=== PATIENT | female | born 1955 | race Caucasian/White ===

== ENCOUNTER 2024-06-03 08:17 | Observation (INO) ==
--- NOTE | 2024-06-03 09:17 | History & Physical Bridge Note ---
Date of Service June 03, 2024 History & Physical Bridge Note I have examined the patient, reviewed the History & Physical and in the interval since the performance of the History & Physical I have noted the following changes of clinical significance: no changes noted
--- NOTE | 2024-06-03 09:37 | Pre Anesthesia Assessment ---
Date of Service June 03, 2024 Pre Sedation Assessment Vital Signs Temp Pulse Resp BP Pulse Ox O2 Del Method 06/03/24 08:37 36.8 C 80 16 168/88 H 100 Room Air Cardiovascular + regular rate and + regular rhythm + S1 normal and + S2 normal; no murmur no JVD and no carotid bruit no edema Respiratory + respiratory effort normal; no respiratory distress no crackles, no rales, no rhonchi and no wheezes Pre-Sedation Airway Assessment Smoking Status: Never smoker Hx Sleep Apnea: No Short, Thick Neck: No Thyromental Distance: > or= 3.5 Finger Breadths Oral Cavity: + Dentures Mallampati Class: III ASA: ASA3 NPO Status Date of Last Intake of Fluids: 06/03/24 Time of Last Intake of Fluids: 05:30 Last Oral Intake of Fluids Comment: sip with meds Date of Last Intake of Solid Food: 06/02/24 Time of Last Intake of Solid Foods: 21:30 Procedure Planning Contraindications for Sedation: none Current Medications Reviewed: Yes Notes The planned sedation has been discussed with the patient. Informed Consent was obtained. I have identified the patient, determined the appropriateness of sedation and have assessed the patient immediately prior to the procedure. All medicine(s) and interventions are by my order.
[2024-06-03] MEDS: niCARdipine 2,000 MCG/20 ML SYR ONE (09:43)
[2024-06-03] MEDS: NITROGLYCERIN/D5W 100MCG/ML 20ML SYR ONE (09:43)
--- NOTE | 2024-06-03 10:27 | Post Anesthesia Assessment ---
Date of Service June 03, 2024 Post Sedation Assessment Vital Signs Temp Pulse Resp BP Pulse Ox O2 Del Method 06/03/24 08:37 36.8 C 80 16 168/88 H 100 Room Air Recovery Score Respiration: Deep Breath/Cough Circulation: +/-20% PreAnes Value Consciousness: Arouseable (by name) Discharge Sedation Level of Care: Phase I Post Sedation Plan On clinical assessment, the patient appears to have tolerated the sedation without complications. Patient is recovering as anticipated. Patient will continue to be monitored by nursing and may be discharged when sedation discharge criteria are met per below protocol. Upon Completions of procedure up to 15 minutes continue every 5 minute vital signs and the P.A.R. score; then discharge to a Phase I or Fast Track to Phase II per the following guidelines: * Discharge Patient to appropriate Phase II area if PAR is 8 or greater or return to pre- procedure baseline. The post - procedure orders will be as directed. * If PAR score is less than 8 or not return to pre-procedure baseline then patient will follow Phase I monitoring till PAR is reached for Phase II. The Phase I may be done in procedure room or may call to secure a Phase I area. * If naloxone or flumazenil are used for reversal, hold in Phase I for continued monitoring from when last reversal dose was given for a minimum of 60 minutes or longer pending the nurse and/or physician discretion of patient condition before discharge to Phase II. Please call the Sedation Physician to re-evaluate and complete post-note for discharge to Phase II area. Do NOT discharge from procedure sedation or Phase 1 until post- sedation evaluation note is complete by procedure /sedation MD Sedation Discharge Instructions to be given to the patient at discharge to home.
--- NOTE | 2024-06-03 10:35 | Cardiac Catheterization ---
Cardiac Cath Procedure Full Procedure Date June 03, 2024 Pre-Procedure Diagnosis Pre-Procedure Diagnosis: Angina and Positive Stress Test AUC Score AUC Score: 7 Post-Procedure Diagnosis Post-Procedure Diagnosis: Severe CAD and Normal Intracardiac Pressures Procedure(s) Performed Procedure(s) Performed: Coronary Angiography and Left Heart Cath Disk Recordist Mahesh Shelton DO Nurse Office(s) Maikel RTR Estimated Blood Loss Estimated Blood Loss: 5cc Summary of Findings 99% proximal LAD with TIM2-3 flow, right to left, and left to left collaterals. 80% mid RCA Hemodynamics Rest Ao:: 104/59/106 Final Ao: 117/58/84 LV: 118/-05/09 Recommendations Recommendations: PCI without planned CABG (Interventional cardiology consulted for PCI) Specimens Specimens: None Radiation Exposure (mGy) 335 Contrast (mls) 45 Fluids (cc crystalloids) Fluids (cc crystalloids): 0cc Drains Drains: N/A Anesthesia Moderate sedation. Start 0958. End 1022. Sedation monitor: Sher EID Procedural Complication(s) None Disposition wheelabrator operator for PCI I attest to the content of the Intraoperative Record and any orders documented therein. Any exceptions are noted below. 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 Recent exercise stress echo positive for inducible ischemia involving inferior wall and inferior septum. CAD Presenation: Positive Stress Test and Stable angina Coronary Anatomy Dominant: Right Left Main (% Stenosis): Normal LAD (% Stenosis): Proximal (99%) and Mid (80%) D1 (% Stenosis): Ostial (30%, large vessel) Circumflex (% Stenosis): Normal OM1 (% Stenosis): Normal (large vessel, Gives rise to left to left collaterals.) RCA (% Stenosis): Mid (80%) R PDA (% Stenosis): Normal R PL1 (% Stenosis): Normal R PL2 (% Stenosis): Normal (small vessel) Ramus (% Stenosis): Normal (small vessel) Diagnostic Physicians Name: Mahesh Shelton DO Closure Device Percutaneous Entry Location: Radial Closure Device: Radial Band Recommendations: PCI without planned CABG (Interventional cardiology consulted for PCI) Intraprocedure Events Significant Disection: No Perforation: No
[2024-06-03] MEDS: HEPARIN (PORCINE) 1000 UNIT/ML 10 ML (CATH LAB USE ONLY) ONE ×2 (12:01→12:02)
[2024-06-03] MEDS: fentaNYL citrate PF 100 MCG/2 ML VIAL ONE (12:01)
[2024-06-03] MEDS: MIDAZOLAM HCL 1 MG/ML 2ML VIAL ONE ×3 (12:01→12:02)
[2024-06-03] MEDS: CLOPIDOGREL BISULFATE 300 MG TAB ONE (12:02)
[2024-06-03] MEDS: OPTIRAY 350 ONE (12:02)
[2024-06-03] MEDS ORDERED: ONDANSETRON INJ 2 MG/ML 2 ML VIAL IV PRN (12:21)
[2024-06-03] MEDS ORDERED: NITROGLYCERIN SL 0.4 MG/TAB TAB SL PRN (12:21)
[2024-06-03] MEDS ORDERED: ACETAMINOPHEN 325 MG TAB PO PRN (12:21)
--- NOTE | 2024-06-03 12:21 | Post Anesthesia Assessment ---
Date of Service June 03, 2024 Post Sedation Assessment Vital Signs Temp Pulse Resp BP Pulse Ox O2 Del Method 06/03/24 12:08 64 16 117/69 99 Room Air 06/03/24 08:37 98.2 F 80 16 168/88 H 100 Room Air Recovery Score Activity: Moves 4 extremities Respiration: Deep Breath/Cough Circulation: +/-20% PreAnes Value Consciousness: Fully Awake Oxygen Saturation: > 92% On Room Air Post Anesthesia Score: 10 Discharge Sedation Level of Care: Fast Track Phase II Post Sedation Plan On clinical assessment, the patient appears to have tolerated the sedation without complications. Patient is recovering as anticipated. Patient will continue to be monitored by nursing and may be discharged when sedation discharge criteria are met per below protocol. Upon Completions of procedure up to 15 minutes continue every 5 minute vital signs and the P.A.R. score; then discharge to a Phase I or Fast Track to Phase II per the following guidelines: * Discharge Patient to appropriate Phase II area if PAR is 8 or greater or return to pre- procedure baseline. The post - procedure orders will be as directed. * If PAR score is less than 8 or not return to pre-procedure baseline then patient will follow Phase I monitoring till PAR is reached for Phase II. The Phase I may be done in procedure room or may call to secure a Phase I area. * If naloxone or flumazenil are used for reversal, hold in Phase I for continued monitoring from when last reversal dose was given for a minimum of 60 minutes or longer pending the nurse and/or physician discretion of patient condition before discharge to Phase II. Please call the Sedation Physician to re-evaluate and complete post-note for discharge to Phase II area. Do NOT discharge from procedure sedation or Phase 1 until post- sedation evaluat ion note is complete by procedure /sedation MD Sedation Discharge Instructions to be given to the patient at discharge to home.
[2024-06-03] MEDS ORDERED: CLOBETASOL PROPIONATE 0.05% CREAM 15 GM TUBE TOP PRN (12:26)
--- NOTE | 2024-06-03 12:35 | Cardiac Catheterization ---
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 Cardiac Status Clinical evaluation leading to the procedure CAD Presenation: Positive Stress Test Anginal Classification: CCS III Diagnostic Physicians Name: Efren Fox MD Closure Device Recommendations: PCI without planned CABG (Interventional cardiology consulted for PCI) Cardiac Cath Procedure Full Procedure Date June 03, 2024 Pre-Procedure Diagnosis Pre-Procedure Diagnosis: Angina and Positive Stress Test AUC Score AUC Score: 7 Post-Procedure Diagnosis Post-Procedure Diagnosis: Severe CAD and Successful PCI Procedure(s) Performed Procedure(s) Performed: Coronary Angiography, PTCA and Drug Eluting Stent Shoe Planner Efren Fox MD Senior Java Software Developer(s) Maikel RTR Estimated Blood Loss Estimated Blood Loss: 30 Medication(s) Medication(s): Clopidogrel, Fentanyl, Heparin, Nicardipine, Nitroglycerin and Versed Summary of Findings Indication: Abnormal stress test, family history of premature CAD Access: 6 Fr right radial artery Catheters: JR4 guide, EBU 3.5 guide Findings: For full details of patient's coronary angiography please see cath report dictated by Dr. Shelton. Briefly, patient found to have severe two-vessel CAD with 80% mid RCA and 99%/subtotal mid LAD with left to left and brisk right to left collaterals. Decision to proceed with PCI of RCA and LAD. -- PCI -- Antithrombotic therapy: Heparin, clopidogrel Procedure: RCA cannulated with JR4 guide Pre-procedure flow ANAM 3 Property Management Intern 50 wire passed across lesion into distal vessel Mid RCA lesion predilated with 2.5 compliant balloon Dilated lesion stented with 3.0 x 34 mm Bj drug-eluting stent Stent post-dilated with 3.5 noncompliant balloon IC vasodilators administered for spasm Post procedure ANAM 3 flow, stent well expanded with minimal residual stenosis and no apparent cardiac complications. Left main cannulated with EBU 3.5 guide Preprocedure flow ANAM II [place] blue wire navigated across subtotal LAD occlusion into distal vessel Property Management Intern 50 wire placed into large diagonal Mid LAD dilated with 2.5 balloon Mid LAD stented with 2.5 x 15 mm [place] drug-eluting stent across takeoff of diagonal Stent postdilated with 3.0 NC Severe stenosis in jailed diagonal dilated with 2.0 and 2.5 balloons Post angioplasty mild to moderate residual stenosis with ANAM-3 flow Additional IC vasodilators administered for possible spasm. Had residual severe diffuse disease in mid LAD after stent. Second stent placed to LAD (2.25 x 30 mm Bj) postdilated with stent balloon IC vasodilators administered. Post procedure ANAM III flow in the LAD, diagonal. Stents well-expanded with no residual stenosis and no apparent cardiac complications. Arterial Closure: TR band Summary: 1. Successful PCI of mid RCA with single drug-eluting stent (3.0 x 34 mm Bj; postdilated with 3.5 NC). 2. Successful PCI of mid LAD with 2 overlapping drug-eluting stents (2.5 x 15, 2.25 x 30 mm Bj; postdilated proximally with 3.0 NC). -PTCA of jailed diagonal ostium with 2.5 balloon Recommendations: To PCU for continued monitoring Loaded with clopidogrel 600 mg in Stained Glass Artist Continue dual-antiplatelet therapy for at least 1 year Continue statin, and ASCVD risk factor modification Consult cardiac Rehab Hemodynamics Rest Ao:: 126/59/84 Final Ao: 81/40/67 LV: -- Recommendations Recommendations: PCI without planned CABG (Interventional cardiology consulted for PCI) Specimens Specimens: None Radiation Exposure (mGy) 1879 Contrast (mls) 65 Fluids (cc crystalloids) Fluids (cc crystalloids): 0cc Drains Drains: N/A Anesthesia Moderate sedation. Start 1032. End 1156. Sedation monitor: Sher EID Procedural Complication(s) None Disposition PCU I attest to the content of the Intraoperative Record and any orders documented therein. Any exceptions are noted below. [facility] Card Cath Procedure Codes Moderate Sedation Procedure 1: Sedation/Anesthesia: 89715 Mod Sedation by the same physician; Ea [id number] Minutes Stenting Procedure 1: Cardiovascular Stent Procedures: 87463 Perc transluminal revascularization of chronic total occlusion, Procedure 2: Cardiovascular Stent Procedures: 41012 Ea addl branch of a major coronary artery PG Care Time/CCT Total # of Minutes Spent Total Time Spent with Patient: Total time spent is greater than 50% in coordination of care (as documented) at patient's floor/unit and/or counseling patient:
[2024-06-03 13:35] VITALS: RESP 18
[2024-06-03] MEDS: CALCIUM 600MG + VIT D 400 IU TAB PO SCH (19:53)
[2024-06-04 06:44] LABS: Basophils # (auto) 0.07 K/uL (0.00-0.20); Basophils % (auto) 1.1 %; Eosinophils # (auto) 0.04 K/uL (0.00-0.50); Eosinophils % (auto) 0.7 %; Hematocrit (blood only) 34.8 % (37.0-47.0); Hemoglobin 11.7 g/dl (12.0-16.0); Immature Granulocytes # (auto) 0.03 K/uL (0.01-0.20); Immature Granulocytes % (auto) 0.5 %; Lymphocytes # (auto) 0.97 K/uL (1.20-3.40); Lymphocytes % (auto) 15.9 %; Mean Corpuscular Hemoglobin 30.5 pg (25.0-34.0); Mean Corpuscular Hgb Conc 33.6 g/dL (32.0-36.0); Mean Corpuscular Volume 90.9 fL (80.0-100.0); Mean Platelet Volume 10.8 fL (9.4-12.4); Monocytes # (auto) 0.51 K/uL (0.11-0.59); Monocytes % (auto) 8.4 %; Neutrophils # (auto) 4.47 K/uL (1.40-6.50); Neutrophils % (auto) 73.4 %; Platelet Count 187 K/uL (130-400); RDW Coefficient of Variation 12.3 % (11.5-14.5); Red Blood Count 3.83 M/uL (4.20-5.40); White Blood Count 6.09 K/ul (4.8-10.8)
[2024-06-04 06:54] LABS: BUN Creatinine Ratio 28.6 (10-20); Calcium 9.4 mg/dl (8.6-10.3); Potassium 4.7 mmol/L (3.5-5.1)
[2024-06-04 07:53] VITALS: BP 95/63; TEMP 98.1; O2SAT 96
--- NOTE | 2024-06-04 08:47 | Cardiology Progress Note ---
Date of Service June 04, 2024 Assessment & Plan (1) Status post insertion of drug-eluting stent into left anterior descending (LAD) artery: (2) S/P right coronary artery (RCA) stent placement: (3) Abnormal stress echocardiogram: (4) Dyslipidemia, goal LDL below 70: Plan Natural history and pathophysiology of coronary artery disease discussed. Recommend continue dual antiplatelet therapy for minimum of 12 months post percutaneous intervention. Post cardiac catheterization activity restrictions listed on discharge summary. Prescription for clopidogrel and sublingual nitroglycerin sent to pharmacy. Borderline hypotension noted this a.m. Lisinopril currently on hold. Cautiously restart lisinopril tomorrow 06/05/2024 and monitor home blood pressure 2-3 days/week. If she notes systolic blood pressure consistently below 110 mmHg, reduce lisinopril to 5 mg daily. All questions answered to patient satisfaction. Cardiology follow-up in 2 to 4 weeks with repeat lipid panel. Consider titration of atorvastatin pending review. Admission and Anticipated Discharge Date Admission Date: June 03, 2024 Subjective 60-year-old female seen examined at the bedside. Multivessel stenting including PUNEET to RCA, and PUNEET to LAD performed 06/03/2024 without complication. Feeling well this morning. Mildly lightheaded in a.m. dose of lisinopril was held today. Denies chest pain or shortness of breath. Mild wrist discomfort without ecchymosis or hematoma. Questions regarding procedural details and any medication changes. Review of Systems Review of Systems: All systems reviewed & are unremarkable except as noted in Subjective Physical Exam Constitutional: well nourished; no acute distress Respiratory: normal respiratory effort; no respiratory distress Auscultation: no crackles, no rales, no rhonchi and no wheezes Cardiovascular: Rate/Rhythm: regular rate and regular rhythm Heart Sounds: normal S1 and normal S2; no murmur Vessels: radial pulses present (No ecchymosis or hematoma); no JVD and no carotid bruit Extremities: no edema Gastrointestinal (Abdomen): Inspection/Auscultation: abdomen normal to inspection and normal bowel sounds; abdomen not distended Percussion/Palpation: abdomen soft; abdomen nontender, no guarding and abdomen not rigid Neurologic: CN's II-XI intact bilaterally and moves all extremities Psychiatric: A+Ox3, euthymic affect Results & Data Vital Signs (Past 12 Hours) Vital Signs Temp Pulse Pulse Resp BP Pulse Ox O2 Del Method 06/04/24 07:52 36.7 C 73 18 95/63 L 96 Room Air 06/04/24 03:57 37.0 C 53 L 18 90/46 L 97 Room Air 06/03/24 23:19 36.8 C 57 L 18 106/55 L 96 Room Air 06/03/24 22:02 77 Laboratory Results CBC 06/04/24 Range/Units 05:52 WBC 6.09 (4.8-10.8) K/ul RBC 3.83 L (4.20-5.40) M/uL Hgb 11.7 L (12.0-16.0) g/dl Hct 34.8 L (37.0-47.0) % Plt Count 187 (130-400) K/uL Neut # (Auto) 4.47 (1.40-6.50) K/uL Lymph # (Auto) 0.97 L (1.20-3.40) K/uL Meigs # (Auto) 0.51 (0.11-0.59) K/uL Eos # (Auto) 0.04 (0.00-0.50) K/uL Baso # (Auto) 0.07 (0.00-0.20) K/uL Comprehensive Metabolic Panel 06/04/24 Range/Units 05:52 Sodium 138 (136-145) mmol/L Potassium 4.7 (3.5-5.1) mmol/L Chloride 106 (98-107) mmol/L Carbon Dioxide 28 (21-32) mmol/L BUN 24 H (6-23) mg/dl Creatinine 0.84 (0.6-1.2) mg/dl Glucose 99 (70-99(Fasting)) mg/dl Calcium 9.4 (8.6-10.3) mg/dl Intake and Output 06/03/24 06/04/24 06/04/24 22:59 06:59 14:59 Intake Total 150 / 250 100 / 250 Balance 150 / 250 100 / 250 Intake: Oral 150 / 250 100 / 250 Other: # Unmeasured Voids 2 2 Weight 62 kg
[2024-06-04] MEDS: lisinopril 10 MG TAB PO SCH (09:06)
[2024-06-04] MEDS: METOPROLOL SUCC 25MG EXT REL TAB PO SCH (09:06)
[2024-06-04] MEDS: ASPIRIN 81 MG ECTAB PO SCH (09:06)
[2024-06-04] MEDS: ATORVASTATIN 40 MG TAB PO SCH (09:06)
[2024-06-04] MEDS: CLOPIDOGREL BISULFATE 75 MG TAB PO SCH (09:06)
[2024-06-04 11:18] VITALS: PULSE 54
--- OUTSIDE RECORDS SUMMARY | 2024-06-04 11:21 | External Medical Summary | Summary of Care ---
Author Name Unknown Organization [facility] Address [address] [place] [address] Phone [phone] Care Team Providers Care Supervisor Claims Name Role Phone Mag Buenrostro DO Primary Care Provider [phone] Encounter Details Date Type Department Care Team (Latest Contact Info) Description 05/26/2024 2:52 PM EST - 05/26/2024 11:59 PM EST Hospital Encounter Radiology Film File [address] [place] [address] Arrived Discharge Disposition: Home - Self Care Allergies No known active allergiesdocumented as of this encounter (statuses as of 05/27/2024) Medications Calcium Carb-Cholecalcife rol 600-400 MG-UNIT Oral TabletIndications :2 pills a day Take by mouth 2 times a day . Active Clobetasol Propionate 0.05 % External Cream (Temovate)Indicat ions:Lichen sclerosus Apply topically to affected area 2 times a day. To affected area for up to two weeks. Then three times a week (M, W, F) for one week, then twice a week (M, F) for one week, then once a week (M) x 1 week. 15 g 1 4 Active Lisinopril 10 MG Oral Tablet (Prinivil)Indicat ions:Primary hypertension Take 1 Tablet by mouth in the morning. 90 Tablet 3 4 Active Atorvastatin Calcium 40 MG Oral Tablet (Lipitor) Take 1 Tablet by mouth in the morning. 90 Tablet 3 4 Active Aspirin 81 MG Oral Tablet Delayed Release Take 1 Tablet by mouth in the morning. 90 Tablet 3 5 Active Metoprolol Succinate ER 25 MG Oral Tablet Extended Release 24 Hour (Toprol XL)Indications:DO E (dyspnea on exertion) One tablet by mouth daily 90 Tablet 3 5 Active documented as of this encounter (statuses as of 05/27/2024) Active Problems Problem Noted Date Diagnosed Date Lichen sclerosus 03/23/2024 Osteopenia of necks of both femurs 03/23/2024 Kidney stone 03/23/2024 Overview (03/23/2024): asymptomatic Hx of nonmelanoma skin cancer 08/07/2020 Overview (08/07/2020): basal cell carcinoma (L lateral cheek 08/2020) Primary hypertension 07/28/2014 Overview (09/06/2014): lisinopril Hyperlipidemia with target LDL less than 100 Overview (09/04/2015): LDL 173 ICD-10 update of inactive term documented as of this encounter (statuses as of 05/27/2024) Resolved Problems Problem Noted Date Diagnosed Date Resolved Date CKD (chronic kidney disease), stage II 03/08/2021 03/23/2024 Overview (09/06/2021): EGFR 66 ADVANCE DIRECTIVE INFORMATION 07/04/2005 03/08/2024 Overview (07/04/2005): No, Advance Directive brochure given to patient. 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 Mucous polyp of cervix 01/22/200202/20 documented as of this encounter (statuses as of 05/27/2024) Immunizations Name Administration Dates Next Due COVID-19 mRNA, LNP-s, No Pre serve, 2-Dose Series (Moderna) 11/02/2020,10/05/2020 Seasonal Influenza, High Dos e, Trivalent, PF, IM (Fluzone HD) 03/23/2024 Seasonal Influenza, PF, 6 M & above, IM , (FluLaval or Fluzone) 03/02/2020,02/23/2019,02/19/2018,2016 Seasonal Influenza, Quadriva lent Hd (Fluzone Hd) 03/20/2023,03/14/2022,03/08/2021 Seasonal Influenza, Quadriva lent, No Preserve, IM 02/20/2016,02/07/2015 TDAP (age 10 and older)(Boostrix) 06/01/2020, Varicella Zoster Vaccine (Adult) 08/15/2015 Zoster Vaccine Recombinant (Shingrix) 06/01/2020 ,03/02/2020 documented as of this encounter Social History Tobacco Use Types Packs/Day Years Used Date Smoking Tobacco: Never Smokeless Tobacco: Never Alcohol Use Standard Drinks/Week Comments No 0 (1 standard drink = 0.6 oz pur e alcohol) PHQ-2 Answer Date Recorded PHQ Adult Total Score 0 03/23/2024 Hunger Vital Sign Answer Date Recorded Within the past 12 months, y ou worried that your food would run out before you got the money to buy more. Never true 03/21/20 23 Within the past 12 months, t he food you bought just didn't last and you didn't have money to get more. Never true 03/21/2023 Childcare Answer Date Recorded Do you feel overwhelmed with taking care of a child, family member or friend? No 03/21/2023 Does your family need help f inding childcare? (Household - for ages 0-17 years) Not on file 03/21/2023 Clothing Answer Date Recorded Have you been unable to get clothing when it was really needed? No 03/21/2023 Is your family able to get c lothes or diapers when needed? (Household - for ages 0-17 years) Not on file 03/21/2023 Personal Safety Answer Date Recorded Do you feel unsafe or have concerns for your saf ety? No 03/21/2023 Do you have concerns for you r family's safety? (Household - for ages 0-17 years) Not on file 03/21/2023 Utilities Answer Date Recorded Do you have trouble paying y our heating, water, or electric bill? No 03/21/2023 Is your family able to pay t he heat, water, or electric bill? (Household - for ages 0-17 years) Not on file 03/21/2023 Does your family have access to good internet? (Household - for ages 0-17 years) Not on file 03/21/2023 Employment Status Answer Date Recorded Are you unemployed or without regular income? No 03/21/2023 Does the household have a re gular source of income? (Household - for ages 0-17 years) Not on file 03/21/2023 Social Connections Answer Date Recorded How often do you feel lonely or isolated from th ose around you? Rarely 03/21/2023 Financial Resource Strain Answer Date R ecorded Do you have any trouble payi ng for your medications, or do you think you might in the future? No 03/21/2023 Does your family have troubl e paying for medicine? (Household - for ages 0-17 years) Not on file 03/21/2023 Transportation Needs Answer Date Record ed READ ONLY Do you have troubl e getting a ride to medical visits or work? Never True 03/21/2023 Does your family have a hard time getting a ride to doctors visits? (Household - for ages 0-17 years) Not on file 03/21/2023 Has lack of transportation k ept you from medical appointments, meetings, work, or from getting things needed for daily living? Check all that apply. (Adult - for ages 18 years and over) Not on file 03/21/2023 Do you (or your family) have trouble finding or paying for a ride (transportation)? (Household - for ages 0-17 years) Not on file 03/21/2023 Housing Stability Answer Date Recorded Do you currently live in a s helter or have no steady place to sleep at night? No 03/21/2023 READ ONLY Do you think you a re at risk of becoming homeless? No 03/21/2023 Does your family worry about paying for your home or becoming homeless? (Household - for ages 0-17 years) Not on file 1 05/21/2022 Are you homeless or worried that you might be in the future? (Adult - for ages 18 years and over) Not on file Are you (or your family) silverio eless or worried that you might be in the future? (Household - for ages 0-17 years) Not on file Food Insecurity Answer Date Recorded Do you need food for this week? No 03/21/2023 Are you able to get enough f ood for your family? (Household - for ages 0-17 years) Not on file 03/21/2023 Does your family need food t his week? (Household - for ages 0-17 years) Not on file 03/21/2023 Do you always have enough fo od for your family? 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 Not on file Not on file documented as of this encounter Plan of Treatment Upcoming Encounters Date Type Department Care Team (Late st Contact Info) Description 07/28/2024 1:00 PM EDT Office Visit Gynecology/Obstetrics [facility] [address] [address] Evelyn Vega MD [address] [address] 09/13/2024 3:00 PM EDT Imaging Radiology [facility] [address] [phone] 09/30/2024 9:00 AM EDT Imaging Radiology [address] [place] [address] 10/27/2024 8:50 AM EDT Office Visit Family Medicine [address] [place] [phone] Mag Buenrostro, DO [address] [place] [address] [place] [place] [address] 11/24/2025 8:20 AM EDT Office Visit [address] [phone] Komal Ellis PA-C [address] [place] [address] [address] [place] [address] Scheduled Procedures Name Priority Associated Diagnoses Date/Ti me COLONOSCOPY FLEXIBLE PROXIMA L DIAGNOSTIC Recall Special screening for malignant neoplasms, colon Health Maintenance Due Date Last Done Comments Cologuard 2000 Fecal Occult Blood Test 2000 Sigmoidoscopy 2000 Pneumococcal Vaccine: 50+ Years (1 of 1 - PCV) 2005 Adult Wellness Visit 2021 COVID-19 Vaccine ( season) 2024 11/02/2020, 10/05/2020 Mammogram 09/24/2024 09/25/2023, 09/03, 09/19/2022, Additional history exists Colonoscopy 10/25/2024 10/25/2014, 10/25/2014 Colorectal Cancer Screening 10/25/2024 Depression Screening 03/23/2025 03/23/2024 GFR 05/25/2025 05/25/2024, 03/05, 03/20/2023, Additional history exists Albumin/Creatinine Ratio 03/20/2026 023, 03/14/2022, 03/08/2021, Additional history exists DXA Scan 03/13/2028 03/13/2021, 03/13/2021 Lipid Panel 03/23/2029 03/23/2024, 08/2020, 03/02/2020, Additional history exists DTap/Tdap Vaccines (3 - Td or Tdap) 06/01/2030 06/01/2020, 05/24/2010 Pap Smear Discontinued 05/12/2018, 09/03, 09/22/2014, Additional history exists Zoster Vaccines Completed 06/01/2020, 02/03, 08/15/2015 Influenza Vaccine (FLU shot) Completed 03/23/2024, 03/20/2023, 03/20/2023, Additional history exists HPV (Gardasil) Vaccine Aged Out No lo nger eligible based on patient's age to complete this topic Hepatitis B Vaccine Aged Out No longe r eligible based on patient's age to complete this topic MENINGOCOCCAL (MENACTRA/MENVEO) Aged Out No longer eligible based on patient's age to complete this topic documented as of this encounter Medical Devices Not on filedocumented as of this encounter Procedures Procedure Name Priority Date/Time Associated Diagnosis Comments DERM EXAM - DERM (IMAGES ONLY, NO REPORT) Routine 05/26/2024 2:52 PM EST Hx of nonmelanoma skin cancer Silver angioma Scar condition and fibrosis of skin Multiple nevi Actinic keratosis Seborrheic keratosis documented in this encounter Results * DERM EXAM - DERM (IMAGES ONLY, NO REPORT) (05/26/2024 2:52 PM EST) Narrative Scheduling, Silent - 05/26/2024 2:52 PM EST This is an imaging study not interpreted or resulted by a [facility] or [facility] contracted radiologist. us Komal Ellis PA-C RADIOLOGY (RAD GENERAL ) Final Result documented in this encounter Care Teams Supervisor Claims Relationship Specialty Start Date End Date Mag Buenrostro DO [address] [place] [address] [place] [phone] PCP - General Internal Medicine 03/23/24 documented as of this encounter
--- OUTSIDE RECORDS SUMMARY | 2024-06-04 11:21 | External Medical Summary | Summary of Care ---
Author Name Unknown Organization [facility] Address [address] [place] [address] Phone [phone] Care Team Providers Care Loss Prevention Manager Name Role Phone Mag Buenrostro DO Primary Care Provider [phone] Encounter Details Date Type Department Care Team (Late st Contact Info) Description 05/27/2024 Population Health External Data Unspecified Department Allergies No known active allergiesdocumented as of [...] 07/28/2024 1:00 PM EDT Office Visit Gynecology/Obstetrics [facility] [address] [address] Evelyn Vega MD [address] [address] 09/13/2024 3:00 PM EDT Imaging Radiology [facility] [address] [phone] 09/30/2024 9:00 AM EDT Imaging Radiology [address] [place] [address] 10/27/2024 8:50 AM EDT Office Visit Family Medicine [address] [place] [phone] Mag Buenrostro DO [address] [place] [address] [place] [address] 11/24/2025 8:20 AM EDT Office [facility] [address] [phone] Komal Ellis PA-C [address] [place] [address] [place] [address] Scheduled Procedures Name Priority Associated Diagnoses Date/Ti me COLONOSCOPY FLEXIBLE PROXIMA L DIAGNOSTIC Recall Special screening for malignant neoplasms, colon Health Maintenance Due Date Last Done Comments Cologuard 2000 Fecal Occult Blood Test 2000 Sigmoidoscopy 2000 Pneumococcal Vaccine: 50+ Years (1 of 1 - PCV) 2005 Adult Wellness Visit 2021 COVID-19 Vaccine ( - 2023- season) 2024 11/02/2020, 10/05/2020 Mammogram 09/24/2024 09/25/2023, [...] Not on filedocumented as of this encounter Care Teams Loss Prevention Manager Relationship Specialty Start Date End Date Mag Buenrostro DO [address] [place] [address] [address] [place] [phone] PCP - General Internal Medicine 03/23/24 documented as of this encounter
--- OUTSIDE RECORDS SUMMARY | 2024-06-04 11:21 | External Medical Summary | Summary of Care ---
Author Name Unknown Organization [facility] Address [address] [place] [address] Phone [phone] Care Team Providers Care Master Fire Control Technician Name Role Phone Mag Buenrostro DO Primary Care Provider [phone] Reason for Visit * Reason Comments Skin Check Pt presents today fo r routine skin check, reports small concerning lesion on face.Hx: NMSC, [place] Encounter Details Date Type Department Care Team (Late st Contact Info) Description 05/26/2024 2:40 PM EST Office Visit Dermatology [address] [place] [address] Komal Ellis PA-C [address] [place] [address] [place] [address] Hx of nonmelanoma skin cancer*; Silver angioma; Scar condition and fibrosis of skin; Multiple nevi; Actinic keratosis; Seborrheic keratosis Allergies No known active allergiesdocumented as of this encounter (statuses as of 05/26/2024) Medications Calcium Carb-Cholecalcife rol 600-400 MG-UNIT Oral [...] as of this encounter (statuses as of 05/26/2024) Active Problems Problem Noted Date Diagnosed Date [...] as of this encounter (statuses as of 05/26/2024) Resolved Problems Problem Noted Date Diagnosed Date Resolved Date CKD (chronic kidney disease), stage II 03/08/2021 03/23/2024 Overview (09/06/2021): EGFR 66 ADVANCE DIRECTIVE INFORMATION 07/04/2005 03/08/2024 Overview (07/04/2005): No, Advance Directive brochure given to patient. 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 Mucous polyp of cervix 01/22/200202/20 documented as of this encounter (statuses as of 05/26/2024) Immunizations Name Administration Dates Next Due COVID-19 mRNA, LNP-s, No Pre serve, 2-Dose Series (Moderna) 11/02/2020,10/05/2020 PPD 05/18/2003 Seasonal Influenza, High Dos e, Trivalent, PF, [...] No 03/21/2023 Does the household have a [facility] source of income? (Household - for ages [...] on file documented as of this encounter Patient Instructions * Patient Instructions* Komal Ellis PA-C - 05/26/2024 2:39 PM EST SUNSCREEN USE AND SUN PROTECTION: 1. The best protection is sun avoidance. Seek shade if you can, especially between 10am to 4pm (peak sun hours). 2. Use sunscreen with an SPF (Sun Protection Factor - the number on most sunscreen bottles) of 30 or more that protects from Ultraviolet A (UVA) and Ultraviolet B (UVB) wavelength light (strongly recommend SPF 50). This is referred to as broad spectrum sun protection because it protects from most wa velengths in both spectrums of UVA and UVB light. Unfortunately, even though the protection is broad it is not complete, therefore making sun avoidance the best protection. UVB and UVA have both beenimplicated in causing skin cancers. Older sunscreens only protected from UVB and sunscreens with added UVA protection should contain Titanium dioxide, Zinc oxide, or Avobenzone. Other oil free, non-comedogenic lotion with SPF 30 or greater is fine. 3. Use sun protection if outside for 15 minutes or more. Apply 20-30 minutes before going out and reapply every 1-2 hours. No sunscreen is truly water ''proof'' and it will wash away with sweat, swimming and rubbing. 4. Wear tightly woven, loose fitting (cooler) long sleeved clothing, UV-blocking sun glasses (eyes need protection as well) and wide-brimmed hatwear (no straw hats with holes because light still getsthrough). Strongly recommended *Neutrogena Pure and Free Baby SPF 60 (have separate face and body lotions) orCeraVe AM facial lotion (with SPF 30). If looking for non toxic alternatives-look for non-arlet particle zinc. Product examples; Think sport, Think baby, Geovanna, e27, [employer], [place] baby. "Baby" products can be used for all ages. Skin Cryosurgery (FREEZING) Instructions Most areas treated by freezing will need very little care. You may wash normally with soap and water and leave any small crusts in place. Vaseline to treated areas 2-3 times per day is a good idea, you do not need to keep them covered with bandages. If a large blister forms and breaks, you will want to apply a light dressing to the area. CHANGE DRESSING ONCE DAILY 1. Wash hands and remove the original dressing(s) in 12-24 hours. 2. Gently clean wound(s) with soap and water. Rinse with water and pat the wound dry. 3. Apply a thin layer of Vaseline ointment with a Q-tip. 4. Cover with a bandage if area(s) is not on the face or scalp. A dressing is not required on the face or scalp. Use non-adherent dressing and paper tape if you are sensitive to band-aid adhesive sensitive. 5. If you have any concerns about the healing wound, please either or our main Dermatology office in [place] at [phone]. If an emergency, please go to your nearest Emergency Department. documented in this encounter Progress Notes * Gustavo Gastelum MD - 05/26/2024 3:21 PM EST I have seen and examined the patient via teledermatology review of chart note and photos with Komal Ellis PA-C. I have reviewed and agree with the assessment and plan. * Komal Ellis PA-C - 05/26/2024 2:40 PM EST SUBJECTIVE: History of Present Illness: Arabella Castellanos is a 68 year old female seen today for follow up of lesion/full skin exam. Previous office visit: 03/17/2023 Last attempted treatments include: cryo to AKs No recent vulvar exams performed, no vulvar discoloration and/or lesions to be assessed per pt. Lesion on L cheek, rough and scaly papule. No tx to date. Senior Game Developer Documentation Patient offered county demonstrator and declined. REVIEW OF SYSTEMS: SKIN: No other new or changing moles. HEME/LYMPH: No new or enlarging lumps or bumps. CONSTITUTIONAL: No nausea, vomiting, fevers, chills, diarrhea. No recent unintended weight loss, night sweats, appetite or malaise. RESP: negative MSK/EXT: Negative or as per HPI GI: negative CV: Negative or as per HPI Rest of systems are negative or as per HPI SKIN CANCER HX: basal cell carcinoma (L lateral cheek 08/2020), actinic keratoses Reviewed, same day as visit, 0 [facility] Dermatology lab work(s)/pathology report(s) as well as those sent by referring provider prior to seeing pt. MEDICA TIONS: Current Outpatient Medications Medication Sig Dispense Refill Calcium Carb-Cholecalciferol 600-400 MG-UNIT Oral Tablet Take by mouth 2 times a day . Clobetasol Propionate 0.05 % External Cream (Temovate) Apply topically to affected area 2 times a day. To affected area for up to two weeks. Then three times a week (, , ) for one week, then twicea week (, ) for one week, then once a week () x 1 week. 15 g 1 Lisinopril 10 MG Oral Tablet (Prinivil) Take 1 Tablet by mouth in the morning. 90 Tablet 3 Atorvastatin Calcium 40 MG Oral Tablet (Lipitor) Take 1 Tablet by mouth in the morning. 90 Tablet 3 Aspirin 81 MG Oral Tablet Delayed Release Take 1 Tablet by mouth in the morning. 90 Tablet 3 Metoprolol Succinate ER 25 MG Oral Tablet Extended Release 24 Hour (Toprol XL) One tablet by mouth daily 90 Tablet 3 No current facility-administered medications for this visit. ALLERG IES: Patient has noknown allergies. OBJECT MARTY: GEN: alert, no distress, appears oriented, pleasant, and cooperative. SKIN: Detailed exam of hair, face including lids and lips, neck, chest, abdomen, back, bilateral upper ext. (arm, hand, fingers), bilateral lower ext. (leg, foot, toes), palpation of scalp, fingernails, toenails, inguinal areas, groin (mons pubis), buttocks, and anus completed: 1. L lateral cheek-White thin diagonal scar. 2. Nose/R medial cheeks-2 pink/brown scaly papules. 3. L cheek/anterior neck/trunk/bilat arms and legs-About 25 total; 2-5mm light- medium brown macules. 4. Forehead/trunk-Some scattered bright red to purple well defined 1-3mm macules and papules. 5. L infraorbital region and L upper arm-2 brown and grown-marin adherent papules. ASSESS MENT/PLAN: 1. Scar s/p basal cell carcinoma on L lateral cheek-No sign of recurrence. 2. Actinic keratoses (x2) on nose/R medial cheek-Cryosurgery explained to the patient. Discussed risk of blistering, crusting, infection, scarring, reoccurrence of lesions, hypopigmentation, post inflammatory hyperpigmentation with pt prior to procedure. Verbal consent obtained. Time out called immediately prior to procedure and patient identification and site verified. Cryo therapy performed with Liquid Nitrogen via cryo spray unit to lesion (s) noted above. Location noted in physical exam. Post op course explained. Pt declined field therapy at this time. 3. Nevi on L cheek/anterior neck/trunk/bilat arms-no tx needed, pt given reassurance and written education about diagnosis. Skin cancer brochure given at previous office visit (pt declined need for another) and ABCDE's discussed with patient. Annual full body skin examination (unless I recommended otherwise), self-examination, and sun protection (SPF 30+ daily to sun exposed areas, with reapplication every 1-2 hours when out in sun for long periods of time) advised and discussed. Recommended sooner follow up for new or changing lesions. These changes include rapid enlargement, changes in color or shape or symptoms, bleeding, or other concerns. The common features and behavior of non-melanoma skin cancers (e.g. BCC/SCC) as well as the ABCDEs and ugly duckling features of melanoma were also reviewed. 4. Angiomas on forehead/trunk-no tx needed, pt given reassurance. 5. Seborrheic/Benign Keratosis(-es) on L infraorbital region and L upper arm-no tx needed, pt givenreassurance. Patient alone today. Photo(s) of #1-5 taken, pt verbally consented to having photo(s) taken. Follow-up: 18 months for full skin exam Applicable photos (if any) and chart reviewed by Dr. Gustavo Gastelum. Presumed diagnoses, expected natural histories, and management options discussed with the patient at length. Questions were addressed and anticipatory guidance provided. They were instructed to contact me if additional questions, concerns, or problems develop in the interim. -There were no barriers to learning and no other pain was related to today's visit. The patient and/or person accompanying patient demonstrates understanding of the visit and treatment. Komal Ellis PA-C 05/26/2024 2:39 PM Dermatology [address] [place] [address] documented in this encounter Nursing Notes * La Hutchins CMA - 05/26/2024 2:29 PM EST Chief Complaint Patient presents with Skin Check Pt presents today for routine skin check, reports small concerning lesion on face. Hx: NMSC, [place] documented in this encounter Plan of Treatment Upcoming Encounters Date Type Department Care Team (Late st Contact Info) Description 07/28/2024 1:00 PM EDT Office Visit Gynecology/Obstetrics [facility] [address] [place] [address] Evelyn Vega MD [address] [place] [address] 09/13/2024 3:00 PM EDT Imaging Radiology [facility] [address] [place] [phone] 09/30/2024 9:00 AM EDT Imaging Radiology [address] [place] [address] 10/27/2024 8:50 AM EDT Office Visit Family Medicine [address] [place] [phone] [place] [address] 11/24/2025 8:20 AM EDT Office Visit [address] [place] [phone] Komal Ellis PA-C [address] [place] [address] [place] [address] Scheduled Procedures Name Priority Associated Diagnoses Date/Ti [...] 03/13/2028 03/13/2021, 03/13/2021 Lipid Panel 03/23/2029 03/23/2024, 1108/2020, 03/02/2020, Additional history exists DTap/Tdap Vaccines (3 [...] study not interpreted or resulted by a [employer] or [facility] contracted radiologist. Komal Ellis PA-C RADIOLOGY ([facility] ) Final Result documented in this encounter Visit Diagnoses Diagnosis Hx of nonmelanoma skin cancer- Primary Personal history of other malignant neoplasm of skin Silver angioma Nevus, non-neoplastic Scar condition and fibrosis of skin Multiple nevi Benign neoplasm of skin, site unspecified Actinic keratosis Seborrheic keratosis Other seborrheic keratosis Screening mammogram for breast cancer documented in this encounter Care Teams Master Fire Control Technician Relationship Specialty Start Date End Date Mag Buenrostro DO [address] [place] [address] [place] [address] PCP - General Internal Medicine 03/23/24 documented as of this encounter
--- OUTSIDE RECORDS SUMMARY | 2024-06-04 11:22 | External Medical Summary | Summary of Care ---
Author Name Unknown Organization [facility] Address [address] [place] [address] Phone [phone] Care Team Providers Care Biodiesel Product Development Manager Name Role Phone Mag Buenrostro DO Primary Care Provider [phone] Reason for Visit * Reason Comments Skin Check Pt presents today fo r routine skin check, reports small concerning lesion on face.Hx: NMSC, [place] Encounter Details Date Type Department Care Team (Late st Contact Info) Description 05/26/2024 2:40 PM EST Office Visit Dermatology [address] [place] [address] Komal Ellis PA-C [address] [place] [address] [place] [address] Hx of nonmelanoma skin cancer*; Silver angioma; [...] No 03/21/2023 Does the household have a [facility] source of income? (Household - for ages [...] Product examples; Think sport, Think baby, Geovanna, [employer], [employer], [place] baby. "Baby" products can be used for [...] either or our main Dermatology office in [place] at [phone]. If an emergency, please go to your nearest Emergency Department. documented in this encounter Progress Notes * Komal Ellis PA-C - 05/26/2024 2:40 [...] and scaly papule. No tx to date. Special Education Director Documentation Patient offered photographs curator and declined. REVIEW OF SYSTEMS: SKIN: No [...] keratoses Reviewed, same day as visit, 0 [facility] Dermatology lab work(s)/pathology report(s) as well as [...] (M, W, F) for one week, then twicea week (M, F) for one week, then once a week (M) x 1 week. 15 g 1 Lisinopril [...] Komal Ellis PA-C 05/26/2024 2:39 PM Dermatology [address] [place] [address] documented in this encounter Nursing Notes * [...] 07/28/2024 1:00 PM EDT Office Visit Gynecology/Obstetrics [facility] [address] [place] [address] Evelyn Vega MD [address] [place] [address] 09/13/2024 3:00 PM EDT Imaging Radiology [facility] [address] [place] [phone] 09/30/2024 9:00 AM EDT Imaging Radiology [address] [place] [address] 10/27/2024 8:50 AM EDT Office Visit Family Medicine [address] [place] [phone] Mag [address] [place] [address] 11/24/2025 8:20 AM EDT Office [address] [facility] [place] [phone] Komal Ellis PA-C [address] [place] [address] [place] [address] Scheduled Procedures Name Priority Associated Diagnoses Date/Ti me COLONOSCOPY FLEXIBLE PROXIMA L DIAGNOSTIC Recall Special screening for malignant neoplasms, colon Health Maintenance Due Date Last Done Comments Cologuard 2000 Fecal Occult Blood Test 2000 Sigmoidoscopy 2000 Pneumococcal Vaccine: 50+ Years (1 of 1 - PCV) 2005 Adult Wellness Visit 2021 COVID-19 Vaccine (3 - season) 2024 11/02/2020, 10/05/2020 Mammogram 09/24/2024 09/25/2023, [...] study not interpreted or resulted by a [facility] or [facility] contracted radiologist. Komal Ellis PA-C RADIOLOGY ([facility] ) Final Result documented in this encounter Visit Diagnoses Diagnosis Hx of nonmelanoma skin cancer- Primary Personal history of other malignant neoplasm of skin Silver angioma Nevus, non-neoplastic Scar condition and fibrosis of skin Multiple nevi Benign neoplasm of skin, site unspecified Actinic keratosis Seborrheic keratosis Other seborrheic keratosis Screening mammogram for breast cancer documented in this encounter Care Teams Biodiesel Product Development Manager Relationship Specialty Start Date End Date Mag Buenrostro DO [address] [place] [address] [place] [address] PCP - General Internal Medicine 03/23/24 documented as of this encounter
--- OUTSIDE RECORDS SUMMARY | 2024-06-04 11:22 | External Medical Summary | Summary of Care ---
Author Name Unknown Organization [facility] Address [address] [place] [address] Phone [phone] Care Team Providers Care Immunology Teacher Name Role Phone Mag Buenrostro DO Primary Care Provider Reason for Visit * Reason Onset Date Comments Appointment 05/21/2024 Encounter Details Date Type Department Care Team (Late st Contact Info) Description 05/21/2024 Telephone Gynecology/Obstetrics [facility] [address] [place] [address] Evelyn Vega MD [address] [facility] [place] [address] Appointment Allergies No known active allergiesdocumented as of this encounter (statuses as of 05/21/2024) Medications Calcium Carb-Cholecalcife rol 600-400 MG-UNIT Oral [...] the morning. 90 Tablet 3 4 Active Metoprolol Succinate ER 25 MG Oral Tablet Extended Release 24 Hour (Toprol XL)Indications:DO E (dyspnea on exertion) Take 0.5 Tablets by mouth in the morning. 50 Tablet 3 4 Active documented as of this encounter (statuses as of 05/21/2024) Active Problems Problem Noted Date Diagnosed Date [...] as of this encounter (statuses as of 05/21/2024) Resolved Problems Problem Noted Date Diagnosed Date Resolved Date CKD (chronic kidney disease), stage II 03/08/2021 03/23/2024 Overview (09/06/2021): EGFR 66 ADVANCE DIRECTIVE INFORMATION 07/04/2005 03/08/2024 Overview (07/04/2005): No, Advance Directive brochure given to patient. 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 Mucous polyp of cervix 01/22/200202/20 documented as of this encounter (statuses as of 05/21/2024) Immunizations Name Administration Dates Next Due COVID-19 [...] on file documented as of this encounter Miscellaneous Notes * Telephone Encounter - Radha Huynh OSA - 05/21/2024 9:09 AM EST Pt called to r/s 3/5 appt that was canceled, no appts searching please assist. Pt stated appt was for follow up regarding lichen sclerosis, pt stated she can be reached at both numbers and VM is okayto be left. Thank you documented in this encounter Plan of Treatment Upcoming Encounters Date Type Department Care Team (Late st Contact Info) Description 05/25/2024 1:00 PM EST Imaging Cardiac Studies, [facility] [address] [place] [id number] 07/28/2024 1:00 PM EDT Office Visit Gynecology/Obstetrics [facility] [address] [place] [address] Evelyn Vega MD [address] [place] [place] [address] 09/13/2024 3:00 PM EDT Imaging Radiology [facility] [address] [place] [phone] 09/30/2024 9:00 AM EDT Imaging Radiology [address] [place] [address] 10/27/2024 8:50 AM EDT Office Visit Family Medicine [address] [place] [phone] Mag Buenrostro [address] [place] [address] 11/01/2024 8:00 AM EDT Office Visit Cardiology, [facility] [address] [place] [address] Brandon Aceves MD [address] [place] [address] 12/01/2024 10:20 AM EDT Office Visit Dermatology [address] [place] [address] Komal Ellis PA-C [address] [place] [address] [place] [address] Scheduled Procedures Name Priority Associated Diagnoses Date/Ti [...] Screening 10/25/2024 Depression Screening 03/23/2025 03/23/2024 GFR 03/23/2025 03/23/2024, 03/05, 03/14/2022, Additional history exists Albumin/Creatinine Ratio 03/20/2026 023, [...] filedocumented as of this encounter Care Teams Immunology Teacher Relationship Specialty Start Date End Date Mag Buenrostro DO [address] [place] [address] [place] [address] PCP - General Internal Medicine 03/23/24 documented as of this encounter
--- OUTSIDE RECORDS SUMMARY | 2024-06-04 11:22 | External Medical Summary | Summary of Care ---
Author Name Unknown Organization [facility] Address [address] [place] [address] Phone [phone] Care Team Providers Care Torch Cutter Name Role Phone Mag Buenrostro Primary Care Provider Reason for Visit * Reason Comments eRx-Medication Refill Encounter Details Date Type Department Care Team (Late st Contact Info) Description 05/11/2024 Refill Family Medicine [address] [phone] Napoleon Cristobal MD [address] [place] [address] [place] [address] Primary hypertension Allergies No known active allergiesdocumented as of this encounter (statuses as of 05/12/2024) Medications Calcium Carb-Cholecalcife rol 600-400 MG-UNIT Oral [...] as of this encounter (statuses as of 05/12/2024) Active Problems Problem Noted Date Diagnosed Date [...] as of this encounter (statuses as of 05/12/2024) Resolved Problems Problem Noted Date Diagnosed Date Resolved Date CKD (chronic kidney disease), stage II 03/08/2021 03/23/2024 Overview (09/06/2021): EGFR 66 ADVANCE DIRECTIVE INFORMATION 07/04/2005 03/08/2024 Overview (07/04/2005): No, Advance Directive brochure given to patient. 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 Mucous polyp of cervix 01/22/200202/20 documented as of this encounter (statuses as of 05/12/2024) Immunizations Name Administration Dates Next Due COVID-19 [...] encounter Miscellaneous Notes * Telephone Encounter - Nadeem Alanis RPh - 05/12/2024 10:49 AM EST Refused Prescriptions: Disp Refills Lisinopril 10 MG Oral Tablet (Prinivil) 90 Tab*3 Sig: Take 1 Tablet by mouth in the morning.Refused By: NADEEM ALANIS for Refusal: Duplicate Request- documented in this encounter Plan of Treatment Upcoming Encounters Date Type Department Care Team (Late st Contact Info) Description 05/25/2024 1:00 PM EST Imaging Cardiac Studies, [facility] [address] [place] [address] 07/07/2024 1:00 PM EST Office Visit Gynecology/Obstetrics [facility] [address] [place] [address] Evelyn Vega MD [address] [place] [address] 09/13/2024 3:00 PM EDT Imaging Radiology [facility] [address] [place] [phone] 09/30/2024 9:00 AM EDT Imaging Radiology [address] [place] [address] 10/27/2024 8:50 AM EDT Office Visit Family Medicine [address] [place] [phone] Mag Buenrostro [address] [place] [address] 11/01/2024 8:00 AM EDT Office Visit Cardiology, [facility] [address] [place] [address] Brandon Aceves MD [address] [place] [address] 12/01/2024 10:20 AM EDT Office Visit Dermatology [address] [place] [address] Komal Ellis PA-C [address] [place] [address] [place] [address] Scheduled Procedures Name Priority Associated Diagnoses Date/Ti [...] Not on filedocumented as of this encounter Visit Diagnoses Diagnosis Primary hypertension Unspecified essential hypertension Screening mammogram for breast cancer documented in this encounter Care Teams Torch Cutter Relationship Specialty Start Date End Date Mag Buenrostro DO [address] [place] [address] [place] [address] PCP - General Internal Medicine 03/23/24 documented as of this encounter
--- OUTSIDE RECORDS SUMMARY | 2024-06-04 11:22 | External Medical Summary ---
Author Name Unknown Address Unknown Organization K0G:[facility] [address] [place] [address] Laboratory Report Ordering Provider Test Date Status RADHA WADDELL 05/25/2024 15:37:07 Final Warfarin Therapy
INR: 2 .0-3.0 conventional anticoagulation
INR: 2.5- 3.5 high intensity anticoagulation Observation Date Value Abnormality Reference (Units ) Status PT 05/25/2024 15:37:07 13.9 11.6-15.2 (seconds) Final INR 05/25/2024 15:37:07 1.1 0.8-1.2 Final Performing Location [facility] [place] [address] [place] [address]
--- OUTSIDE RECORDS SUMMARY | 2024-06-04 11:22 | External Medical Summary | Summary of Care ---
Author Name Unknown Organization [facility] Address [address] [place] [address] Phone [phone] Care Team Providers Care Payment Rep Name Role Phone Mag Buenrostro DO Primary Care Provider Reason for Visit * Reason Onset Date Comments Health Maintenance 04/16/2024 Encounter Details Date Type Department Care Team (Late st Contact Info) Description 04/16/2024 Telephone Family [address] [phone] Mag Buenrostro DO [address] [place] [address] [place] [phone] Health Maintenance Allergies No known active allergiesdocumented as of this encounter (statuses as of 04/27/2024) Medications Calcium Carb-Cholecalcife rol 600-400 MG-UNIT Oral [...] as of this encounter (statuses as of 04/27/2024) Active Problems Problem Noted Date Diagnosed Date [...] as of this encounter (statuses as of 04/27/2024) Resolved Problems Problem Noted Date Diagnosed Date Resolved Date CKD (chronic kidney disease), stage II 03/08/2021 03/23/2024 Overview (09/06/2021): EGFR 66 ADVANCE DIRECTIVE INFORMATION 07/04/2005 03/08/2024 Overview (07/04/2005): No, Advance Directive brochure given to patient. 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 Mucous polyp of cervix 01/22/200202/20 documented as of this encounter (statuses as of 04/27/2024) Immunizations Name Administration Dates Next Due COVID-19 [...] encounter Miscellaneous Notes * Telephone Encounter - Ady Ortega OSA - 04/27/2024 9:51 AM EST I scheduled pt an appt with Dr. Buenrostro. I sent pt a TranSi[employer] message of appt date/time and ph # to call and change if wont work. * Telephone Encounter - Mag Buenrostro DO - 04/25/2024 9:06 PM EST Schedule her to see me back in 6 months. * Telephone Encounter - Consuelo Kim LPN - 04/16/2024 2:03 PM EST Care Gaps Comprehensive Care Outreach Last Office/Telemedicine Visit: 03/23/2024 (in office), Visit date not found (telemedicine) Next Office Visit: Visit date not found Hemoglobin AIC Results: No results found for: "HEMOGLOBIN A1C" BP Readings from Last 1 Encounters: 04/07/24 164/76 Reviewed Health Maintenance below: Health Maintenance Topic Date Due Pneumococcal Vaccine: 65+ Years (1 of 1 - PCV) Never done Adult Wellness Visit Never done COVID-19 Vaccine ( season) 2024 Mammogram 09/24/2024 Colorectal Cancer Screening 10/25/2024 OV she was unsure when she needed a follow up Mamm may scheduled Care Gap Outreach Act ion Taken: Spoke to patient I spoke to patient. She does not have a future appointment scheduled. She wasn't sure if you wantedto see her back in a year or before that? documented in this encounter Plan of Treatment Upcoming Encounters Date Type Department Care Team (Late st Contact Info) Description 05/25/2024 1:00 PM EST Imaging Cardiac Studies, [facility] [address] [place] [address] 07/07/2024 1:00 PM EST Office Visit Gynecology/Obstetrics [facility] [place] [address] Evelyn Vega MD [address] [place] [address] 09/13/2024 3:00 PM EDT Imaging Radiology [facility] [address] [address] [phone] 09/30/2024 9:00 AM EDT Imaging Radiology [address] [place] [address] 10/27/2024 8:50 AM EDT Office Visit Family Medicine [address] [place] [phone] [address] [place] [address] 11/01/2024 8:00 AM EDT Office Visit Cardiology, [facility] [address] [place] [address] Brandon Aceves MD [address] [place] [address] 12/01/2024 10:20 AM EDT Office Visit Dermatology [address] [place] [address] Komal Ellis PA-C [address] [place] [address] [place] [address] Scheduled Procedures Name Priority Associated Diagnoses Date/Ti me COLONOSCOPY FLEXIBLE PROXIMA L DIAGNOSTIC Recall Special screening for malignant neoplasms, colon Health Maintenance Due Date Last Done Comments Cologuard 2000 Fecal Occult Blood Test 2000 Sigmoidoscopy 2000 Pneumococcal Vaccine: 65+ Years (1 of 1 - PCV) 2005 [...] filedocumented as of this encounter Care Teams Payment Rep Relationship Specialty Start Date End Date Mag Buenrostro DO [address] [place] [address] [place] [phone] PCP - General Internal Medicine 03/23/24 documented as of this encounter
--- OUTSIDE RECORDS SUMMARY | 2024-06-04 11:22 | External Medical Summary | Summary of Care ---
Author Name Unknown Organization [facility] Address [address] [place] [address] Phone [phone] Care Team Providers Care Laborer Syrup Machine Name Role Phone Mag Buenrostro Primary Care Provider [phone] Reason for Visit * Reason Comments Follow Up Encounter Details Date Type Department Care Team (Late st Contact Info) Description 05/25/2024 2:30 PM EST Office Visit Cardiology, [facility] [address] [place] [address] Delbert Ortega, [address] [facility] [place] [address] BISWAS (dyspnea on exertion)*; Palpitations; PVCs (premature ventricular contractions); Abnormal stress echocardiogram; Family history of premature coronary artery disease; Family history of sudden cardiac (SCD); Abnormal coagulation profile Allergies No known active allergiesdocumented as of this encounter (statuses as of 05/25/2024) Medications Calcium Carb-Cholecalcif jose 600-400 MG-UNIT Oral TabletIndication s:2 pills a day Take by mouth 2 times a day . Active Clobetasol Propionate 0.05 % External Cream (Temovate)Indica tions:Lichen sclerosus Apply topically to affected area 2 times a day. To affected area for up to two weeks. Then three times a week (M, W, F) for one week, then twice a week (M, F) for one week, then once a week (M) x 1 week. 15 g 1 4 Active Lisinopril 10 MG Oral Tablet (Prinivil)Indica tions:Primary hypertension Take 1 Tablet by mouth in [...] Oral Tablet Extended Release 24 Hour (Toprol XL)Indications:D OE (dyspnea on exertion) One tablet by mouth daily 90 Tablet 3 5 Active Metoprolol Succinate ER 25 MG Oral Tablet Extended Release 24 Hour (Toprol XL)Indications:D OE (dyspnea on exertion) Take 0.5 Tablets by mouth in the morning. 50 Tablet 3 4 05/25/19 25 Discontin ued(Refil l) documented as of this encounter (statuses as of 05/25/2024) Active Problems Problem Noted Date Diagnosed Date [...] as of this encounter (statuses as of 05/25/2024) Resolved Problems Problem Noted Date Diagnosed Date Resolved Date CKD (chronic kidney disease), stage II 03/08/2021 03/23/2024 Overview (09/06/2021): EGFR 66 ADVANCE DIRECTIVE INFORMATION 07/04/2005 03/08/2024 Overview (07/04/2005): No, Advance Directive brochure given to patient. 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 Mucous polyp of cervix 01/22/200202/20 documented as of this encounter (statuses as of 05/25/2024) Immunizations Name Administration Dates Next Due COVID-19 [...] No 03/21/2023 Does the household have a [facility] source of income? (Household - for [...] on file documented as of this encounter Last Filed Vital Signs Vital Sign Reading Time Taken Comments Blood Pressure 148/78 05/25/2024 2:23 PM EST Pulse 76 05/25/2024 2:23 PM EST Temperature - - Respiratory Rate 14 05/25/2024 2:23 PM EST Oxygen Saturation - - Inhaled Oxygen Concentration - - Weight 62.6 kg (138 lb) 05/25/2024 2:23 PM EST Height - - Body Mass Index 22.27 03/23/2024 8:33 AM EST documented in this encounter Progress Notes * Delbert Ortega, - 05/25/2024 2:35 PM EST 05/25/2024 Cardiology Follow Up Visit and History and Physical History of Present Illness Arabella Castellanos is a 68 year old female , with a history of hypertension, high cholesterol, andpremature ventricular contractions (PVCs), was referred to cardiology following an irregular pulse detected during a routine physical with initial cardiology visit on 04/07/[address] Aceves of our practice. An EKG performed by the primary care physician revealed PVCs and a possible anterior septal infarction. The patient reported a history of chest tightness with exertion, which would resolve upon continued activity. This symptom was last experienced approximately one to two years ago. The patient also reported a longstanding history of PVCs, approximately 20 years, which seemed to have improved with the initiation of metoprolol. She presented for an exercise stress echocardiogram today and reported no chest discomfort or shortness of breath. She is found to have significant ST segment depression on the stress EKG consistent with ischemia and the post exercise images were notable for a stress-induced The patient has a significant family history of heart disease, with both parents affected. The patient's mother had a history of hypertension and suffered a heart attack and stroke approximately a year and a half before her at 86. The patient's father suffered a massive myocardial infarction at 48 and suddenly at 58, presumably from a heart event. 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 The patient has never smoked. Past medical history also includes basal cell carcinoma of the cheek and a history of chronic kidney disease, although recent kidney function tests have been normal. Past surgical history includes colonoscopies,tubal ligation, and lithotripsy for a large kidney stone in 1998. Past Medical History - Premature ventricular contractions - Hypertension - High cholesterol - Sinus infection - Social History - Patient has never been a smoke - and lives with her -Retired RN worked in [email or web address] Family History - Mother: hypertension, heart attack, stroke - Father: heart attack at 48 years old, in his sleep at the age of 58 Complete Review of Systems is as stated above, negative, or noncontributory. Review of patient's allergies indicates: No Known Allergies Current Outpatient Medications Medication Sig Dispense Refill [...] Tablet Extended Release 24 Hour (Toprol XL) Take 0.5 Tablets by mouth in the morning. 50 Tablet 3 No current facility-administered medications for this visit. OBJECTIVE/PHYSICAL EXAMINATION: BP 148/78 | Pulse 76 | Resp 14 | Wt 62.6 kg (138 lb) | LMP 01/02/2002 | BMI 22.27 kg/m | BSA 1.71m General: no acute distress and stated age Eyes: conjunctiva are pink and non-injected, sclera clear Neck: normal jugular venous pulse, no hepatojugular reflux Chest: normal shape and normal respiratory effort Lungs: clear to auscultation and percussion Cardiac Exam: - regular heart sounds, no murmurs, rubs, or gallops Abdomen: abdomen soft, non-tender, no abnormal masses and no hepatosplenomegaly Musculoskeletal: no gait disturbance, no weakness Extremities: no edema and no cyanosis Neuro: grossly normal exam Psych: appropriate affect and insight. Results EKG: Premature ventricular contractions, age undetermined anteroseptal infarctive pattern (04/07/2024) 14 Day ZioPatch monitor: Average heart rate 76 bpm, 7.9% premature ventricular contractions (03/2024) Summary of exercise stress echocardiogram performed today 05/25/2024: Stress Study: The stress echo is positive for inducible ischemia. The left ventricular wall motion is normal at rest. The left ventricular ejection fraction increases normally with stress. Post exercise images reveal hypokinesis of the inferoseptal and inferior luevano. The stress EKG response was abnormal and suggestive of ischemia. Frequent premature ventricular contractions were present at baseline that became less frequent withprogressive exercise and returned to baseline frequency in the post stress recovery interval. The exercise test was terminated due to fatigue, transient 2/10 chest pressure reported early in the post stress recovery interval. Patient's symptoms in the EKG abnormalities resolved in the post stress recovery interval. Patient left the stress test suite stable condition offering no additional complaints. Resting Study: The qualitative LV ejection fraction is 55-59% (normal). The left ventricular diastolic function is mildly abnormal (grade I). Mild tricuspid regurgitation is present. The left atrium is mildly enlarged. There is no evidence of pulmonary hypertension. Repeat resting EKG performed today 05/25/2024 reveals sinus rhythm at 70 beats per minute, age undetermined septal infarct pattern noted in lead V2, occasional PVCs. ST segments are normal. Assessment & Plan Coronary Artery Disease Presents with dyspnea on exertion and an abnormal stress echocardiogram suggestive of decreased myocardial perfusion. Baseline EKG indicates an age- undetermined antraceptal infarct. Family history includes premature coronary heart disease and sudden cardiac . Hypertension, hyperlipidemia, and c hronic kidney disease are present. Decision to proceed with heart catheterization based on abnormalstress test findings and family history. Invasive coronary angiography recommended. Discussed three potential outcomes: stenting, medical management, or bypass surgery. Patient prefers [facility] for the procedure. - heart catheterization at [facility] - Start aspirin 81 mg daily - Increase metoprolol succinate to 25 mg daily - Order CBC and electrolytes - Order chest x-ray Premature Ventricular Contractions (PVCs) Long-standing PVCs, confirmed by a heart monitor showing 7.9% of total heartbeats as PVCs. Symptomsimproved with metoprolol. - Continue metoprolol, increased to 25 mg daily Hypertension Well-managed with lisinopril for the past 10-11 years. - Continue lisinopril Hyperlipidemia On atorvastatin 40 mg daily since March 23, tolerating well without side effects. - Continue atorvastatin 40 mg daily Delbert Ortega DO Department of Cardiology Text in this note was generated using an ambient documentation service. I discussed the use of a device to record and summarize our discussion today. All persons present during the encounter consented to its use. documented in this encounter Nursing Notes * Echo Sanchez LPN - 05/25/2024 4:02 PM EST [facility] CARDIAC CATHETERIZATION INSTRUCTIONS Please arrive at [facility] via the Main Entrance and check in at Outpatient Registration Desk at 8:30am (time) on 06/03/24(date). Mahesh Shelton DO will perform your cardiac catheterization. Nothing to eat or drink after 10:00PM the night before. No caffeine 24 hours prior to procedure, No tobacco products after midnight DO NOT take the following medications on the morning of your procedure: N/A No over the counter vitamins, Fish oil and/or Vit E the morning of your procedure OK to take the following medications with a sip of water at their usual times: All medications OK to take Be sure to take (4) 81mg low dose aspirin on the morning of your catheterization. If you take INSULIN or NON-INSULIN INJECTABLES: N/A If you take COUMADIN/BLOOD THINNERS: N/A DO NOT wear any jewelry the day of the procedure. Bring a list of medications with you. You will not be allowed to drive, please bring a jukebox route driver 18 or older to take you home. You will not be permitted to leave via taxi, public transportation/bus or Uber. You will be admitted to a recovery area for rest and observation after your catheterization is complete. Please bring a book or tablet to occupy your time. No televisions are available in the recovery area. Pre-Op Testing [x] LAB [x] RADIOLOGY/CHEST XRAY [] EKG If you have questions regarding the procedure or questions in the days after the procedure, please do not hesitate to call the office at [phone]. * Echo Sanchez LPN - 05/25/2024 2:23 PM EST Examination Room: 12 Name: Arabella Castellanos Date of : 1955 Reason for Visit: Follow up Problems/Concerns: Here after stress test Interim Hosp(s): denies Chest Pain/SOB: denies MyChart Discussed: ALREADY ACTIVE Patient was instructed to not get up on the exam table until directed and assisted by their provider; patient is to remain seated in the chair/ wheelchair/ exam table for fall prevention and safety reasons. Patient is aware staff will assist stepping down off exam table with personnel. documented in this encounter Plan of Treatment Upcoming Encounters Date Type Department Care Team (Late st Contact Info) Description 05/26/2024 2:40 PM EST Office Visit Dermatology [address] [place] [address] Komal Ellis PA-C [address] [place] [address] [place] [address] 07/28/2024 1:00 PM EDT Office Visit Gynecology/Obstetrics [facility] [address] [place] [address] Evelyn Vega MD [address] [place] [address] 09/13/2024 3:00 PM EDT Imaging Radiology [facility] [place] [phone] 09/30/2024 9:00 AM EDT Imaging Radiology [address] [place] [address] 10/27/2024 8:50 AM EDT Office Visit Family Medicine [address] [place] [phone] Mag Buenrostro DO [address] [place] [address] [place] [address] 11/01/2024 8:00 AM EDT Office Visit Cardiology, [facility] [address] [address] Brandon Aceves MD [address] [place] [address] Pending Results Name Type Priority Associated Diagnoses Date /Time COMPREHENSIVE METABOLIC PANEL Lab Routine BISWAS (dyspnea on exertion) Abnormal stress echocardiogram 05/25/2024 3:37 PM EST PT INR Lab Routine BISWAS (dyspnea on exertion) Abnormal stress echocardiogram Abnormal coagulation profile 05/25/2024 3:37 PM EST APTT Lab Routine BISWAS (dyspnea on exertion) Abnormal stress echocardiogram Abnormal coagulation profile 05/25/2024 3:37 PM EST Scheduled Orders Name Type Priority Associated Diagnoses Orde r Schedule EKG EKG Routine Palpitations PVCs (premature ventricular contractions) BISWAS (dyspnea on exertion) Expected: 05/25/2024 (Approximate), Expires: 06/25/2025 COMPREHENSIVE METABOLIC PANEL Lab Routine BISWAS (dyspnea on exertion) Abnormal stress echocardiogram Expected: 05/25/2024, Expires: 05/25/2025 PT INR Lab Routine BISWAS (dyspnea on exertion) Abnormal stress echocardiogram Abnormal coagulation profile Expected: 05/25/2024, Expires: 05/25/2025 APTT Lab Routine BISWAS (dyspnea on exertion) Abnormal stress echocardiogram Abnormal coagulation profile Expected: 05/25/2024, Expires: 05/25/2025 CARDIAC CATH-CARDIOLOGY ONLY Procedures Routine BISWAS (dyspnea on exertion) Abnormal stress echocardiogram Ordered: 05/25/2024 Scheduled Procedures Name Priority Associated Diagnoses Date/Ti [...] Procedure Name Priority Date/Time Associated Diagnosis Comments XR CHEST 2 VIEWS Routine 05/25/2024 3:48 PM EST BISWAS (dyspnea on exertion) Abnormal stress echocardiogram documented in this encounter Results * XR CHEST 2 VIEWS (05/25/2024 3:48 PM EST) Anatomical Region Laterality Modality Chest Computed Radiogr aphy 05/25/2024 3:55 PM EST Impressions 05/25/2024 3:53 PM EST IMPRESSION: No acute cardiopulmonary disease. Narrative 05/25/2024 3:53 PM EST EXAM: EXAM: XR CHEST 2 VIEWS DATE TIME: 05/25/2024 - 05/25/2024 3:48 pm HISTORY: 68 y/o F pre cardiac cath COMPARISON: None FINDINGS: No focal consolidation, pleural effusion, or pneumothorax. Cardiac silhouette is normal in size. No acute osseous abnormality. Procedure Note Angella Murguia MD - 05/25/2024 EXAM: EXAM: XR CHEST 2 VIEWS DATE TIME: 05/25/2024 - 05/25/2024 3:48 pm HISTORY: 68 y/o F pre cardiac cath COMPARISON: None FINDINGS: No focal consolidation, pleural effusion, or pneumothorax. Cardiac silhouette is normal in size. No acute osseous abnormality. IMPRESSION IMPRESSION: No acute cardiopulmonary disease. us Delbert Ortega DO RADIOLOGY ([facility]) Rachel l Result * CBC (05/25/2024 3:37 PM EST) WBC 7.02 4.00 - 10.80 K/uL 05/25/2024 3:45 PM EST [facility]10 RBC 4.24 3.85 - 5.15 M/uL 05/25/2024 3:45 PM EST [facility]10 HGB 12.8 12.0 - 15.3 g/dL 05/25/2024 3:45 PM EST [facility]10 HCT 40.1 36.0 - 45.2 % 05/25/2024 3:45 PM EST [facility]10 MCV 94.6 81.5 - 97.5 fL 05/25/2024 3:45 PM EST [facility]10 MCH 30.2 27.0 - 34.0 pg 05/25/2024 3:45 PM EST [facility]10 MCHC 31.9 32.0 - 36.0 g/dL 05/25/2024 3:45 PM EST [facility]10 RDW 12.5 11.5 - 15.5 % 05/25/2024 3:45 PM EST [facility]10 PLT 243 140 - 400 K/uL 05/25/2024 3:45 PM EST [facility]10 MPV 9.9 6.6 - 11.1 fL 05/25/2024 3:45 PM EST [facility]10 Blood Venous blood specimen / Unknown Venipuncture / Unknown 05/25/2024 3:37 PM EST 05/25/2024 3:37 PM EST us Delbert Ortega DO LAB BLOOD ORDERABLES Final R esult [facility]-10 [address] [place] [address] documented in this encounter Visit Diagnoses Diagnosis BISWAS (dyspnea on exertion)- Primary Other dyspnea and respiratory abnormality Palpitations PVCs (premature ventricular contractions) Other premature beats Abnormal stress echocardiogram Other nonspecific abnormal cardiovascular system function study Family history of premature coronary artery disease Family history of ischemic heart disease Family history of sudden cardiac (SCD) Abnormal coagulation profile Screening mammogram for breast cancer documented in this encounter Care Teams Laborer Syrup Machine Relationship Specialty Start Date End Date Mag Buenrostro DO [address] [place] [address] [place] [address] PCP - General Internal Medicine 03/23/24 documented as of this encounter"
--- OUTSIDE RECORDS SUMMARY | 2024-06-04 11:22 | External Medical Summary | Summary of Care ---
Author Name Unknown Organization [facility] Address [address] [place] [address] Phone [phone] Care Team Providers Care Early Morning Babysitter Name Role Phone Mag Buenrostro Primary Care Provider + [phone] Reason for Visit * Reason Comments Outpatient Testing Encounter Details Date Type Department Care Team (Late st Contact Info) Description 05/25/2024 3:40 PM EST Laboratory Laboratory, [facility] [address] [place] [id number] [facility] [address] [place] [address] BISWAS (dyspnea on exertion); Abnormal stress echocardiogram; Abnormal coagulation profile Allergies No known active allergiesdocumented as of this encounter (statuses as of 05/25/2024) Medications Calcium Carb-Cholecalcife rol 600-400 MG-UNIT Oral [...] 03/21/2023 Does the household have a re lar source of income? (Household - for ages [...] 05/26/2024 2:40 PM EST Office Visit Dermatology [address] [place] [address] Komal Ellis PA-C [address] [place] [address] [place] [address] 07/28/2024 1:00 PM EDT Office Visit Gynecology/Obstetrics [facility] [address] [place] [address] Evelyn Vega MD [address] [address] 09/13/2024 3:00 PM EDT Imaging Radiology [facility] [address] [place] [phone] 09/30/2024 9:00 AM EDT Imaging Radiology [address] [place] [address] 10/27/2024 8:50 AM EDT Office Visit Family Medicine [address] [place] [phone] [place] [address] 11/01/2024 8:00 AM EDT Office Visit Cardiology, [facility] [address] [place] [address] Brandon Aceves MD [address] [place] [address] Pending Results Name Type Priority Associated Diagnoses Date /Time COMPREHENSIVE METABOLIC PANEL Lab Routine BISWAS (dyspnea on exertion) Abnormal stress echocardiogram 05/25/2024 3:37 PM EST PT INR Lab Routine BISWAS (dyspnea on exertion) Abnormal stress echocardiogram Abnormal coagulation profile 05/25/2024 3:37 PM EST APTT Lab Routine BISWAS (dyspnea on exertion) Abnormal stress echocardiogram Abnormal coagulation profile 05/25/2024 3:37 PM EST Scheduled Procedures Name Priority Associated Diagnoses Date/Ti [...] Procedure Name Priority Date/Time Associated Diagnosis Comments CBC Routine 05/25/2024 3:37 PM EST BISWAS (dyspnea on exertion) Abnormal stress echocardiogram documented in this encounter Results * CBC (05/25/2024 3:37 PM EST) WBC 7.02 4.00 - 10.80 K/uL 05/25/2024 3:45 PM EST [facility] RBC 4.24 3.85 - 5.15 M/uL 05/25/2024 3:45 PM EST [facility] [place] [facility] HGB 12.8 12.0 - 15.3 g/dL 05/25/2024 3:45 PM EST [facility] HCT 40.1 36.0 - 45.2 % 05/25/2024 3:45 PM EST [facility] [place] [facility] MCV 94.6 81.5 - 97.5 fL [...] 3:37 PM EST 05/25/2024 3:37 PM EST Delbert Ortega DO LAB BLOOD ORDERABLES Final R esult [facility] 132 [facility] [place] [address] documented in this encounter Visit Diagnoses Diagnosis BISWAS (dyspnea on exertion) Other dyspnea and respiratory abnormality Abnormal stress echocardiogram Other nonspecific abnormal cardiovascular system function study Abnormal coagulation profile Screening mammogram for breast cancer documented in this encounter Care Teams Early Morning Babysitter Relationship Specialty Start Date End Date Mag Buenrostro DO [address] [place] [address] [place] [address] PCP - General Internal Medicine 03/23/24 documented as of this encounter
--- OUTSIDE RECORDS SUMMARY | 2024-06-04 11:22 | External Medical Summary ---
Author Name Unknown Address Unknown Organization [id number]:[facility] - [address] [place] [address] Laboratory Report Ordering Provider Test Date Status RADHA WADDELL 05/25/2024 15:37:07 Final Observation Date Value Abnormality Reference (Units ) Status WBC, Total 05/25/2024 15:37:07 7.02 4.00-10.8 0 (K/uL) Final RBC 05/25/2024 15:37:07 4.24 3.85-5.15 (M/uL) Final Hemoglobin 05/25/2024 15:37:07 12.8 12.0-15.3 (g/dL) Final HCT 05/25/2024 15:37:07 40.1 36.0-45.2 (%) Final MCV 05/25/2024 15:37:07 94.6 81.5-97.5 (fL) Final MCH 05/25/2024 15:37:07 30.2 27.0-34.0 (pg) Final MCHC 05/25/2024 15:37:07 31.9 32.0-36.0 (g/dL) Final RDW 05/25/2024 15:37:07 12.5 11.5-15.5 (%) Final Platelets 05/25/2024 15:37:07 243 140-400 (K /uL) Final MPV 05/25/2024 15:37:07 9.9 6.6-11.1 ( fL) Final Performing Location [facility] - [address] [place] [address]
--- OUTSIDE RECORDS SUMMARY | 2024-06-04 11:22 | External Medical Summary | Summary of Care ---
Author Name Unknown Organization [facility] Address [address] [place] [address] Phone [phone] Care Team Providers Care Cis Coordinator Name Role Phone Mag Buenrostro Primary Care Provider [phone] Reason for Visit * Reason Comments Follow Up Encounter Details Date Type Department Care Team (Late st Contact Info) Description 05/25/2024 2:30 PM EST Office Visit Cardiology, [facility] [address] [place] [address] Delbert Ortega, 132 [facility] [place] [address] BISWAS (dyspnea on exertion)*; Palpitations; PVCs (premature [...] No 03/21/2023 Does the household have a [employer] source of income? 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 Patient prefers [facility] for the procedure. - heart catheterization at [facility] - Start aspirin 81 mg daily - [...] Sanchez LPN - 05/25/2024 4:02 PM EST [facility] CARDIAC CATHETERIZATION INSTRUCTIONS Please arrive at [facility] via the Main Entrance and check in [...] be allowed to drive, please bring a driver utility worker 18 or older to take you home. [...] not hesitate to call the office at [phone]. * Echo Sanchez LPN - 05/25/2024 2:23 [...] 05/26/2024 2:40 PM EST Office Visit Dermatology [address] [place] [address] Komal Ellis PA-C [address] [place] [address] [place] [address] 07/28/2024 1:00 PM EDT Office Visit Gynecology/Obstetrics [facility] [address] [place] [address] Evelyn Vega MD [address] [place] [address] 09/13/2024 3:00 PM EDT Imaging Radiology [facility] [place] [phone] 09/30/2024 9:00 AM EDT Imaging Radiology [address] [place] [address] 10/27/2024 8:50 AM EDT Office Visit Family Medicine [address] [place] [phone] Mag Buenrostro DO [address] [place] [address] [place] [address] 11/01/2024 8:00 AM EDT Office Visit Cardiology, [facility] [address] [place] [address] Brandon Aceves MD [address] [place] [address] Pending Results Name Type Priority Associated Diagnoses Date /Time COMPREHENSIVE METABOLIC PANEL Lab Routine BISWAS (dyspnea on exertion) Abnormal stress echocardiogram 05/25/2024 3:37 PM EST APTT Lab Routine [...] Abnormal stress echocardiogram Expected: 05/25/2024, Expires: 05/25/2025 APTT Lab Routine [...] abnormality. IMPRESSION IMPRESSION: No acute cardiopulmonary disease. Delbert Ortega DO RADIOLOGY ([facility]) Rachel l Result * PT INR (05/25/2024 3:37 PM EST) Prothrombin Time 13.9 11.6 - 15.2 seconds 05/25/2024 4:06 PM EST [facility] INR 1.1 0.8 - 1.2 05/25/2024 4:06 PM EST [facility] Blood Venous blood specimen / Unknown Venipuncture / Unknown 05/25/2024 3:37 PM EST 05/25/2024 3:37 PM EST Narrative [facility] - 05/25/2024 4:06 PM EST Warfarin Therapy INR: 2.0-3.0 conventional anticoagulation INR: 2.5-3.5 high intensity anticoagulation Delbert Ortega DO LAB BLOOD ORDERABLES Final R esult [facility] [place] [facility] [place] [address] * CBC (05/25/2024 3:37 PM EST) WBC [...] 97.5 fL 05/25/2024 3:45 PM EST [facility]10 MCH 30.2 27.0 - 34.0 [...] LAB BLOOD ORDERABLES Final R esult [facility] 132 [facility] [place] [address] documented in this encounter Visit Diagnoses Diagnosis [...] cancer documented in this encounter Care Teams Cis Coordinator Relationship Specialty Start Date End Date Mag Buenrostro DO [address] [place] [address] [place] [address] PCP - General Internal Medicine 03/23/24 documented as of this encounter"
--- OUTSIDE RECORDS SUMMARY | 2024-06-04 11:22 | External Medical Summary ---
Author Name Unknown Address Unknown Organization K0G:[facility] [place] [address] - [address] [place] [address] Laboratory Report Ordering Provider Test Date Status RADHA WADDELL 05/25/2024 15:37:07 Final Anticoagulation may affect t esting. Refer to [facility] Test Catalog for a list of effects. Observation Date Value Abnormality Reference (Units ) Status aPTT panel - Platelet poor plasma 05/25/2024 15:37:07 28 21-38 (seconds) Final Performing Location [facility] - [address] [place] [address]
--- OUTSIDE RECORDS SUMMARY | 2024-06-04 11:22 | External Medical Summary ---
Author Name Unknown Address Unknown Organization K01:LABORATORY [facility] - [address] [facility] [place] [address] Laboratory Report Ordering Provider Test Date Status RADHA WADDELL 05/25/2024 15:37:07 Final Observation Date Value Abnormality Reference (Units ) Status BUN 05/25/2024 15:37:07 16 6-20 (mg/dL) Final Creatinine 05/25/2024 15:37:07 0.9 0.5-1.0 (mg/dL) Final Glomerular filtration rate/1.73 sq M.predicted [Volume Rate/Area] in Serum, Plasma or Blood by Creatinine-based formula (CKD-EPI) 05/25/2024 15:37:07 72 >=60 (mL/min) Final eGFR is calculated based on the CKD-EPI 2020 equation. Sodium 05/25/2024 15:37:07 143 135-146 (m mol/L) Final Potassium 05/25/2024 15:37:07 4.6 3.5-5.1 (m mol/L) Final Cl 05/25/2024 15:37:07 102 98-107 (mm ol/L) Final CO2 05/25/2024 15:37:07 27 22-32 (mmo l/L) Final Anion gap 05/25/2024 15:37:07 14 7-15 (mmol /L) Final Glucose 05/25/2024 15:37:07 94 70-120 (mg /dL) Final Albumin 05/25/2024 15:37:07 4.8 3.8-5.0 (g /dL) Final AST (Aspartate aminotransferase) 05/25/2024 15:37:07 21 10-35 (U/L) Final Alk Phos 05/25/2024 15:37:07 73 35-130 (U/ L) Final Bilirubin, Total 05/25/2024 15:37:07 0.7 <=1 .2 (mg/dL) Final Calcium 05/25/2024 15:37:07 9.9 8.4-10.2 ( mg/dL) Final Protein 05/25/2024 15:37:07 7.1 6.0-8.3 (g /dL) Final ALT (Alanine aminotransferase) 05/25/2024 15:37:07 25 10-35 (U/L) Final Performing Location LABORATORY [facility] - [facility] [address] [facility] [address]
--- OUTSIDE RECORDS SUMMARY | 2024-06-04 11:23 | External Medical Summary | Summary of Care ---
Author Name Unknown Organization [facility] Address [address] [place] [address] Phone [phone] Care Team Providers Care Dive Superintendent Name Role Phone Mag Buenrostro DO Primary Care Provider + [phone] Reason for Referral * Evaluate & Treat - Unlimited Visits (Within 3 days (urgent)) - Authorized Specialty Diagnoses / Procedures Referred By Contact Referred To Contact Cardiovascular Medicine / Cardiology Diagnoses Irregular heart rate Frequent PVCs Abnormal EKG Mag Buenrostro DO [address] [place] [address] [place] [address] Phone: tel: fax: Referral ID Status Reason Start Date Expiration Date Visits Requested Visits Authorized [id number] Authorized Specialty Services Required 4 [phone] Question Answer Referral Priority Within 3 days (urgent) Where should this appointment be scheduled? [facility] To which of the following clinics are you referring your patient? [facility] * Evaluate & Treat - Unlimited Visits (Within 30 days (routine)) - Authorized Specialty Diagnoses / Procedures Referred By Contac t Referred To Contact Obstetrics/Gynecology / Gynecology Obstetrics Diagnoses Lichen sclerosus Mag Buenrostro DO [address] [place] [address] [place] [address] Phone: tel: fax: Referral ID Status Reason Start Date Expiration Date Visits Requested Visits Authorized [id number] Authorized Specialty Services Required 4 [phone] Question Answer Referral Priority Within 30 days (routine) What condition is the patient being seen for? Other Please use Ask-a-Doc if you are unsure about the referral I acknowledge Please provide more details follow up of lichen sclerosis. previously saw Dr. Vega Where should this appointment be scheduled? Anter Comments BP 132/78 | Pulse 77 | Temp 97 F (36.1 C) | Resp 16 | Ht 5' 6" (1.676 m) | Wt 142 lb (64.4 kg) | LMP 01/02/2002 Reason for Visit * Reason Onset Date Comments Medication Administration 03/23/2024 Flu an d/or Pneumo Inj Encounter Details Date Type Department Care Team (Late st Contact Info) Description 03/23/2024 8:50 AM EST Office Visit [address] [place] [phone] Mag Buenrostro DO [address] [place] [address] [place] [address] Primary hypertension*; Need for prophylactic vaccination and inoculation against influenza; Irregular heart rate; Lipid screening; Lichen sclerosus; Osteopenia of necks of both femurs; Frequent PVCs; Abnormal EKG Allergies No known active allergiesdocumented as of this encounter (statuses as of 03/23/2024) Medications Calcium Carb-Cholecalcif jose 600-400 MG-UNIT Oral [...] the morning. 90 Tablet 3 4 Active Clobetasol Propionate 0.05 % External Cream (Temovate) Apply topically to affected area 2 times a day. To affected area for up to two weeks. Then three times a week (M, W, F) for one week, then twice a week (M, F) for one week, then once a week (M) x 1 week. 15 g 1 3 03/23/20 24 Discontin ued(Refil l) Lisinopril 10 MG Oral Tablet (Prinivil)Indica tions:Primary hypertension Take 1 Tablet by mouth in the morning. 90 Tablet 4 03/23/20 24 Discontin ued(Refil l) documented as of this encounter (statuses as of 03/23/2024) Active Problems Problem Noted Date Diagnosed Date [...] as of this encounter (statuses as of 03/23/2024) Resolved Problems Problem Noted Date Diagnosed Date Resolved Date CKD (chronic kidney disease), stage II 03/08/2021 03/23/2024 Overview (09/06/2021): EGFR 66 ADVANCE DIRECTIVE INFORMATION 07/04/2005 03/08/2024 Overview (07/04/2005): No, Advance Directive brochure given to patient. 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 Mucous polyp of cervix 01/22/200202/20 documented as of this encounter (statuses as of 03/23/2024) Immunizations Name Administration Dates Next Due COVID-19 [...] Date Smoking Tobacco: Never Smokeless Tobacco: Never Tobacco Cessation:Counseling Given: Not Answered Alcohol Use Standard Drinks/Week Comments No 0 (1 standard drink = 0.6 oz pur e alcohol) PHQ-2 Answer Date Recorded PHQ-2 Score -1 03/02/2020 Hunger Vital Sign Answer Date Recorded Within [...] No 03/21/2023 Does the household have a [facility] income? (Household - for [...] Sign Reading Time Taken Comments Blood Pressure 132/78 03/23/2024 8:33 AM EST Pulse 77 03/23/2024 8:33 AM EST Temperature 36.1 C (97 F) 03/23/2024 8:33 AM EST Respiratory Rate 16 03/23/2024 8:33 AM EST Oxygen Saturation 98% 03/23/2024 8:33 AM EST Inhaled Oxygen Concentration - - Weight 64.4 kg (142 lb) 03/23/2024 8:33 AM EST Height 167.6 cm (5' 6") 03/23/2024 8:33 AM EST Body Mass Index 22.92 03/23/2024 8:33 AM EST documented in this encounter Patient Instructions * Patient Instructions* Mag Buenrostro DO - 03/23/2024 9:06 AM EST I recommend that you get your RSV vaccine at the pharmacy prior to winter. documented in this encounter Progress Notes * Kim Linares RN - 03/23/2024 8:40 AM EST PRE - ADMINISTRATION DOCUMENTATION Are you experiencing any cold symptoms or fever? No Have you had Guillain-Phoenicia Syndrome (an illness that causes paralysis) within the last 6 weeks? No Have you had the flu shot in the past? YES Have you ever had a reaction to the flu shot? No Kim Linares RN, 03/23/2024 8:40 AM Immunization Administration Documentation Time Out Procedure Performed: Yes Patient Identified (Ask Name/Date of ): Yes Does the patient have a fever greater than 101 degrees today? No Patient allergic to latex? No VFC Stock: No Immunization(s) verified: Yes, Immunization Name: Flu, VIS Sheet(s) given: Yes Verified Side and Site: Yes Verified Shot(s) with Parent(s)/Patient: Yes * Mag Buenrostro DO - 03/23/2024 8:40 AM EST Subjective Arabella Castellanos is a 68 year old female. Chief Complaint Patient presents with Medication Administration Flu and/or Pneumo Inj HPI: Arabella Castellanos presents today for to establish care. She has no concerns today. BP is okay here today despite not taking her medication this morning. She is very active doing yard work, splitting wood, etc. Also works out using kettle bells. Gets some aches and pains. She uses clobetasol for her history of lichen sclerosis. Needs to get back in to see gynecology as Dr. Vega told her that she has two spots that she wants to keep an eye on. She declines pneumonia vaccination. Discussed RSV. She notes palpitations at times. Has a known history of PVCs, evaluated in the remote past. Will sometimes get episodes of SOB and chest tightness. Not necessarily related to exertion. Figures it can't be her heart or she would be by now. Notes that she tends to downplay her symptoms. Allergies, immunizations, medications, past family history, past surgical history, and social history reviewed and updated as needed. PMH: Patient Active Problem List Diagnosis Primary hypertension Hyperlipidemia with target LDL less than 100 Hx of nonmelanoma skin cancer Lichen sclerosus Osteopenia of necks of both femurs Kidney stone Current Outpatient Medications Medication Sig Dispense Refill [...] by mouth in the morning. 90 Tablet 0 No current facility-administered medications for this visit. Past Medical History: Diagnosis Date Basal cell carcinoma (BCC) of cheek 08/02/2020 CKD (chronic kidney disease), stage II 03/08/2021 EGFR 66 Diffuse cystic mastopathy External hemorrhoids without complication 10/25/2014 HTN, goal below 140/90 07/28/2014 lisinopril Hyperlipidemia LDL goal < 130 07/28/2014 LDL 173 Internal hemorrhoid 10/25/2014 Lyme disease 11/02/2015 Mucous polyp of cervix Need for hepatitis C screening test 09/06/2014 negative Screening for HIV without presence of risk factors 09/06/2014 negative Past Surgical History: Procedure Laterality Date COLONOSCOPY, DIAGNOSTIC (RECTUM) 10/25/2014 normal, repeat 10 yrs/COLONOSCOPY FLEXIBLE PROXIMAL DIAGNOSTIC performed by Vaughn Smith MD at ENDOSCOPY [facility] FRAGMENT KIDNEY STONE BY SHOCK WAVE 1998 HYSTEROSCOPY,DIAGNOSTIC 03/2002 Dr Bowens INFORMATION HAD D&C AND POLYPECTOMY WITH HYSTEROSCOPY KIDNEY ENDOSCOPY/ENDOPYELOTOMY 1998 LIGATE/CUT OVIDUCT(S) 1987 MAMMOGRAM SCREENING BILATERAL Bilateral 09/20/2014 dense fibroglandular tissue, category 1 normal MAMMOGRAM SCREENING BILATERAL Bilateral 10/10/2015 hetergeneously dense, category 1 normal MAMMOGRAM SCREENING BILATERAL Bilateral 03/10/2018 heterogeneously dense, category 1 normal MAMMOGRAM SCREENING BILATERAL Bilateral 07/20/2020 heterogeneously dense, category 2 repeat 1 year MAMMOGRAM SCREENING BILATERAL Bilateral 09/19/2022 heterogeneously dense, category 2 repeat 1 year. MOBILE DXA N/A 03/13/2021 Lumbar T -1.8, Femur T -2.4, no specific treatment, repeat 2 years Review of patient's allergies indicates: No Known Allergies Family History Problem Relation Name Age of Onset Hypertension Mother Heart Disorder Mother has arrhythmia Heart Disorder Father AZ at 48 of AZ at 58 Heart Disorder Sister arrhythmia Hypertension Sister Cancer Grandmother (Maternal) ovarian ca at 62 Asthma Son Breast Cancer Aunt (Maternal) Cancer Other jaw chewed snuff Family Status Relation Status Mo Fa at age 58 Sis (Not Specified) Sis (Not Specified) MGMA (Not Specified) Son (Not Specified) MAUNT (Not Specified) Other (Not Specified) Social History Socioeconomic History Marital status: Spouse name: Not on file Number of children: 3 Years of education: Not on file Highest education level: Not on file Occupational History 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 (Adult - for ages 18 years and over): No Does your family have trouble paying for medicine? (Household - for ages 0-17 years): Not on file Food Insecurity: No Food Insecurity (03/21/2023) Food Insecurity Do you need food for this week? (Adult - for ages 18 years and over): No Are you able to get enough food for your family? (Household - for ages 0-17 years): Not on file Does your family need food this week? (Household - for ages 0-17 years): Not on file Do you always have enough food for your family? (Household - for ages 0-17 years): Not on file Transportation Needs: No Transportation Needs (03/21/2023) Transportation Needs Do you have trouble getting a ride to medical visits or work? (Adult - for ages 18 years and over):Never True Does your family have a hard time getting a ride to doctors visits? (Household - for ages 0-17 years): Not on file Has lack of transportation kept you from medical appointments, meetings, work, or from getting things needed for daily living? Check all that apply. (Adult - for ages 18 years and over): Not on file Do you (or your family) have trouble finding or paying for a ride (transportation)? (Household - for ages 0-17 years): Not on file Social Connections: Socially Integrated (03/21/2023) Social Connections How often do you feel lonely or isolated from those around you? (Adult - for ages 18 years and over): Rarely Housing Stability: Low Risk (03/21/2023) Housing Stability Do you currently live in a group home or have no steady place to sleep at night? (Adult - for ages 18 years and over): No Do you think you are at risk of becoming homeless? (Adult - for ages 18 years and over): No Does your family worry about paying for your home or becoming homeless? (Household - for ages 0-17 years): Not on file Are you homeless or worried that you might be in the future? (Adult - for ages 18 years and over): Not on file Are you (or your family) homeless or worried that you might be in the future? (Household - for ages0-17 years): Not on file Review of Systems Constitutional: Positive for fatigue. Negative for chills and fever. Respiratory: Negative for cough and shortness of breath. Cardiovascular: Positive for palpitations. Negative for chest pain. (+) mild LE edema, goes down overnight Gastrointestinal: Negative for abdominal pain, constipation, diarrhea, nausea and vomiting. (+) occ hemorrhoidal bleeding Genitourinary: Negative for dysuria, frequency and hematuria. Musculoskeletal: Positive for arthralgias and back pain. Negative for myalgias. Skin: Negative for rash. Neurological: Negative for dizziness, light-headedness and headaches. Psychiatric/Behavioral: Negative for dysphoric mood. The patient is not nervous/anxious. All other systems reviewed and are negative. Objective BP 132/78 | Pulse 77 | Temp 97 F (36.1 C) | Resp 16 | Ht 5' 6" (1.676 m) | Wt 142 lb (64.4 kg) | LMP 01/02/2002 | SpO2 98% | BMI 22.92 kg/m | BSA 1.73 m Physical Exam Vitals and nursing note reviewed. Constitutional: Appearance: Normal appearance. Eyes: Extraocular Movements: Extraocular movements intact. Pupils: Pupils are equal, round, and reactive to light. Cardiovascular: Rate and Rhythm: Normal rate. Rhythm irregular. Heart sounds: Normal heart sounds. Pulmonary: Effort: Pulmonary effort is normal. Breath sounds: Normal breath sounds. Abdominal: General: There is no distension. Palpations: Abdomen is soft. Tenderness: There is no abdominal tenderness. Musculoskeletal: General: Normal range of motion. Cervical back: Neck supple. Right lower leg: No edema. Left lower leg: No edema. Lymphadenopathy: Cervical: No cervical adenopathy. Skin: General: Skin is warm and dry. Neurological: General: No focal deficit present. Mental Status: She is alert and oriented to person, place, and time. Psychiatric: Mood and Affect: Mood normal. Behavior: Behavior normal. Thought Content: Thought content normal. Judgment: Judgment normal. ASSESSMENT/PLAN: Primary hypertension (Primary) - reasonable control today despite not taking her medicine this morning. - COMPREHENSIVE METABOLIC PANEL; Future; Expected date: 03/23/2024 - Lisinopril 10 MG Oral Tablet (Prinivil); Take 1 Tablet by mouth in the morning. Need for prophylactic vaccination and inoculation against influenza - INFLUENZA VAC., TRIVALENT, HD, PF, 65 AND ABOVE, 0.5 ML IM (FLUZONE HD) Irregular heart rate - EKG shows PVCs but also new ben-septal changes which are concerning especially given her intermitent episodes of chest pain and SOB. She also has a strong family history of CAD, with her Father having a massive AZ at age 48. - CBC WITH WBC DIFFERENTIAL; Future; Expected date: 03/23/2024 - COMPREHENSIVE METABOLIC PANEL; Future; Expected date: 03/23/2024 - EKG; Future; Expected date: 03/23/2024 - TSH WITH FREE T4 IF INDICATED; Future; Expected date: 03/23/2024 - CARDIOLOGY REFERRAL OP Lipid screening - LIPID PANEL WITH DIRECT LDL IF TG IS HIGH; Future; Expected date: 03/23/2024 Lichen sclerosus - Clobetasol Propionate 0.05 % External Cream (Temovate); Apply topically to affected area 2 times a day. To affected area for up to two weeks. Then three times a week (M, W, F) for one week, then twice a week (M, F) for one week, then once a week (M) x 1 week. - OUTSIDE B2B SALES REFERRAL OP Osteopenia of necks of both femurs - recommend calcium + vitamin D. - DEXA SCAN/BONE MINERAL AXIAL Frequent PVCs - EKG to evaluate PVC burden. Consider BB. - EXTERNAL EKG 8 TO 15 DAYS; Future; Expected date: 03/24/2024 - CARDIOLOGY REFERRAL OP Abnormal EKG - recommend avoiding strenuous activity until evaluated by cardiology. - CARDIOLOGY REFERRAL OP Check-out note: Labs today. Mag Buenrostro DO documented in this encounter Nursing Notes * Kim Linares RN - 03/23/2024 8:37 AM EST New pt to establish, no new concerns documented in this encounter Plan of Treatment Upcoming Encounters Date Type Department Care Team (Late st Contact Info) Description 09/30/2024 9:00 AM EDT Imaging Radiology [address] [place] [address] 12/01/2024 10:20 AM EDT Office Visit Dermatology [address] [place] [address] Komal Ellis PA-C [address] [place] [address] [place] [address] Pending Results Name Type Priority Associated Diagnoses Date /Time LIPID PANEL WITH DIRECT LDL IF TG IS HIGH Lab Routine Lipid screening 03/23/2024 9:50 AM EST CBC WITH WBC DIFFERENTIAL Lab Routine Irregular heart rate 03/23/2024 9:50 AM EST COMPREHENSIVE METABOLIC PANEL Lab Routine Primary hypertension Irregular heart rate 03/23/2024 9:50 AM EST TSH WITH FREE T4 IF INDICATED Lab Routine Irregular heart rate 03/23/2024 9:50 AM EST Scheduled Orders Name Type Priority Associated Diagnoses Orde r Schedule DEXA SCAN/BONE MINERAL AXIAL Medical Imaging Routine Osteopenia of necks of both femurs Ordered: 03/23/2024 LIPID PANEL WITH DIRECT LDL IF TG IS HIGH Lab Routine Lipid screening Expected: 03/23/2024, Expires: 03/23/2025 CBC WITH WBC DIFFERENTIAL Lab Routine Irregular heart rate Expected: 03/23/2024 (Approximate), Expires: 03/23/2025 COMPREHENSIVE METABOLIC PANEL Lab Routine Primary hypertension Irregular heart rate Expected: 03/23/2024 (Approximate), Expires: 03/23/2025 EKG EKG Routine Irregular heart rate Expected: 03/23/2024 (Approximate), Expires: 04/22/2025 TSH WITH FREE T4 IF INDICATED Lab Routine Irregular heart rate Expected: 03/23/2024 (Approximate), Expires: 03/23/2025 EXTERNAL EKG 8 TO 15 DAYS Holter Routine Frequent PVCs Expected: 03/24/2024 (Approximate), Expires: 03/23/2025 Scheduled Procedures Name Priority Associated Diagnoses Date/Ti me COLONOSCOPY FLEXIBLE PROXIMA L DIAGNOSTIC Recall Special screening for malignant neoplasms, colon Scheduled Referrals Name Type Priority Associated Diagnoses Orde r Schedule OUTSIDE B2B SALES REFERRAL OP Referral Within 30 days (routine) Lichen sclerosus Ordered: 03/23/2024 CARDIOLOGY REFERRAL OP Referral Within 3 days (urgent) Irregular heart rate Frequent PVCs Abnormal EKG Ordered: 03/23/2024 Health Maintenance Due Date Last Done Comments Cologuard 2000 Fecal Occult Blood Test 2000 Sigmoidoscopy 2000 Pneumococcal Vaccine: 65+ Years (1 of 1 - PCV) 2020 Adult Wellness Visit 2021 COVID-19 Vaccine ( season) 2024 11/02/2020, 10/05/2020 GFR 03/20/2024 03/20/2023, 03/05, 03/08/2021, Additional history exists Mammogram 09/24/2024 09/25/2023, 09/03, 09/19/2022, Additional history exists Colonoscopy 10/25/2024 10/25/2014, 10/25/2014 Colorectal Cancer Screening 10/25/2024 Depression Screening 03/23/2025 03/23/2024, 03/02/20 20 Lipid Panel 03/08/2026 03/08/2021, 02/03, 09/06/2014, Additional history exists Albumin/Creatinine Ratio 03/20/2026 023, 03/14/2022, 03/08/2021, Additional history exists DXA Scan 03/13/2028 03/13/2021, 03/13/2021 DTap/Tdap Vaccines (3 - Td or Tdap) [...] of this encounter Visit Diagnoses Diagnosis Primary hypertension- Primary Unspecified essential hypertension Need for prophylactic vaccination and inoculation against influenza Irregular heart rate Cardiac dysrhythmia, unspecified Lipid screening Screening for lipoid disorders Lichen sclerosus Circumscribed scleroderma Osteopenia of necks of both femurs Frequent PVCs Other premature beats Abnormal EKG Nonspecific abnormal electrocardiogram (ECG) (EKG) Screening mammogram for breast cancer documented in this encounter Care Teams Dive Superintendent Relationship Specialty Start Date End Date Mag Buenrostro DO [address] [place] [address] [place] [address] PCP - General Internal Medicine 03/23/24 documented as of this encounter
--- OUTSIDE RECORDS SUMMARY | 2024-06-04 11:23 | External Medical Summary | Summary of Care ---
Author Name Unknown Organization [facility] Address [address] [place] [address] Phone [phone] Care Team Providers Care Cellophane Bath Mixer Name Role Phone Mag Buenrostro Primary Care Provider [phone] Reason for Visit * Reason Comments Outpatient Testing Encounter Details Date Type Department Care Team (Late st Contact Info) Description 03/23/2024 9:50 AM EST Laboratory Laboratory [address] [place] [phone] [place] [address] Lipid screening; Irregular heart rate; Primary hypertension Allergies No known active allergiesdocumented as of this encounter (statuses as of 03/23/2024) Medications Calcium Carb-Cholecalcife rol 600-400 MG-UNIT Oral [...] the morning. 90 Tablet 3 4 Active documented as of [...] Care Team (Late st Contact Info) Description 09/13/2024 3:00 PM EDT Imaging Radiology, [address] [place] [address] 09/30/2024 9:00 AM EDT Imaging Radiology [address] [place] [address] 12/01/2024 10:20 AM EDT Office Visit Dermatology [address] [place] [address] Komal Ellis PA-C [address] [place] [address] [place] [address] Pending Results Name Type Priority Associated Diagnoses [...] Irregular heart rate 03/23/2024 9:50 AM EST CBC Lab Routine Irregular heart rate 03/23/2024 9:50 AM EST DIFFERENTIAL, AUTOMATED Lab Routine Irregular heart rate 03/23/2024 9:50 AM EST Scheduled Procedures Name Priority Associated Diagnoses Date/Ti me COLONOSCOPY FLEXIBLE PROXIMA L DIAGNOSTIC Recall Special screening for malignant neoplasms, colon Health Maintenance Due Date Last Done Comments Cologuard 2000 Fecal Occult Blood Test 2000 Sigmoidoscopy 2000 Pneumococcal Vaccine: 65+ Years (1 of 1 - PCV) 2020 Adult Wellness Visit 2021 COVID-19 Vaccine (3 - 2023- season) 2024 11/02/2020, 10/05/2020 GFR 03/20/2024 03/20/2023, [...] as of this encounter Visit Diagnoses Diagnosis Lipid screening Screening for lipoid disorders Irregular heart rate Cardiac dysrhythmia, unspecified Primary hypertension Unspecified essential hypertension Screening mammogram for breast cancer documented in this encounter Care Teams Cellophane Bath Mixer Relationship Specialty Start Date End Date Mag Buenrostro DO [address] [place] [address] [place] [id number] PCP - General Internal Medicine 03/23/24 documented as of this encounter
--- OUTSIDE RECORDS SUMMARY | 2024-06-04 11:23 | External Medical Summary | Summary of Care ---
Author Name Unknown Organization [facility] Address [address] [place] [address] Phone [phone] Care Team Providers Care Solar Sales Estimator Name Role Phone Mag Buenrostro DO Primary Care Provider + [phone] Reason for Visit * Reason Comments Acute Possuible sinus infe ction Encounter Details Date Type Department Care Team (Late st Contact Info) Description 04/20/2024 7:40 AM EST Office Visit Family Medicine [address] [phone] Ines Palomo PA-C [address] [place] [address] [place] [address] Acute maxillary sinusitis, recurrence not specified* Allergies No known active allergiesdocumented as of this encounter (statuses as of 04/20/2024) Medications Calcium Carb-Cholecalcife rol 600-400 MG-UNIT Oral [...] the morning. 50 Tablet 3 4 Active Amoxicillin-Pot Clavulanate 875-125 MG Oral Tablet (Augmentin)Indica tions:Acute maxillary sinusitis, recurrence not specified Take 1 Tablet by mouth in the morning and 1 Tablet before bedtime. Do all this for 10 days. 20 Tablet 4 04/30/20 24 Active documented as of this encounter (statuses as of 04/20/2024) Active Problems Problem Noted Date Diagnosed Date [...] as of this encounter (statuses as of 04/20/2024) Resolved Problems Problem Noted Date Diagnosed Date Resolved Date CKD (chronic kidney disease), stage II 03/08/2021 03/23/2024 Overview (09/06/2021): EGFR 66 ADVANCE DIRECTIVE INFORMATION 07/04/2005 03/08/2024 Overview (07/04/2005): No, Advance Directive brochure given to patient. 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 Mucous polyp of cervix 01/22/200202/20 documented as of this encounter (statuses as of 04/20/2024) Immunizations Name Administration Dates Next Due COVID-19 [...] No 03/21/2023 Does the household have a [facility] source of income? (Household - for ages [...] Sign Reading Time Taken Comments Blood Pressure 116/70 04/20/2024 7:30 AM EST Pulse 63 04/20/2024 7:30 AM EST Temperature 36.8 C (98.3 F) 04/20/2024 7:30 AM ES T Respiratory Rate - - Oxygen Saturation 97% 04/20/2024 7:30 AM EST Inhaled Oxygen Concentration - - Weight 62.7 kg (138 lb 3.2 oz) 04/20/2024 7:30 A M EST Height - - Body Mass Index 22.31 03/23/2024 8:33 AM EST documented in this encounter Progress Notes * Ines Palomo PA-C - 04/20/2024 7:47 AM EST Nursing Notes: Carlie Klein, SENIOR PRODUCT MANAGER 04/20/24 0729 Sign at exiting of workspace She is here for possible sinus infection. Sx started 2 weeks ago. Sore throat, nasal congestion, sinus pressure, face soreness. The sore throat is gone now. Pt here today with sinus pain/pressure, nasal/head congestion, nasal drainage, post nasal drip, mild cough, headache for the past couple weeks. Pt states that she did have fever, chills - initially. Pt states that her grandkids are sick. Review of patient's allergies indicates: No Known [...] without presence of risk factors 09/06/2014 negative Social History Socioeconomic History Marital status: Spouse [...] Stability Do you currently live in a jail or have no steady place to sleep [...] - for ages0-17 years): Not on file O:Blood pressure 116/70, pulse 63, temperature 98.3 F (36.8 C), weight 138 lb 3.2 oz (62.7 kg),last menstrual period 01/02/2002, SpO2 97%. GENERAL: alert, healthy, and no distress NECK: supple, no adenopathy EYES: conjunctiva are pink and non-injected, sclera clear EARS: External ears normal, Canals clear, TM's Normal NOSE: no mucosal erythema, no mucosal edema, no purulent discharge OROPHARYNX: no exudate, no erythema, lips, buccal mucosa, and tongue normal, and mucous membranes are moist HEART: regular rate & rhythm, no murmur, and no gallops LUNGS: chest symmetric with normal AP diameter, no chest deformities noted, no chest wall tenderness, lungs clear to auscultation A:Acute maxillary sinusitis, recurrence not specified (Primary) - Amoxicillin-Pot Clavulanate 875-125 MG Oral Tablet (Augmentin); Take 1 Tablet by mouth in the morning and 1 Tablet before bedtime. Do all this for 10 days. Start above med. Rest, fluids. Any questions/problems, please call. If anything changes, worsens, develops new sx, please call [facility]. Follow Up: Return if symptoms worsen or fail to improve. Ines Palomo PA-C documented in this encounter Nursing Notes * Carlie Klein CMA - 04/20/2024 7:29 AM EST She is here for possible sinus infection. Sx started 2 weeks ago. Sore throat, nasal congestion, sinus pressure, face soreness. The sore throat is gone now. documented in this encounter Plan of Treatment Upcoming Encounters Date Type Department Care Team (Late st Contact Info) Description 05/25/2024 1:00 PM EST Imaging Cardiac Studies, [facility] [address] [facility] [place] [address] 07/07/2024 1:00 PM EST Office Visit Gynecology/Obstetrics [facility] [address] [place] [address] Evelyn Vega MD [address] [place] [address] 09/13/2024 3:00 PM EDT Imaging Radiology [facility] [address] [place] [id number] 09/30/2024 9:00 AM EDT Imaging Radiology [address] [place] [address] 11/01/2024 8:00 AM EDT Office Visit Cardiology, [facility] [place] [address] Brandon Aceves MD [address] [place] [address] 12/01/2024 10:20 AM EDT Office Visit Dermatology [address] [place] [address] Komal Ellis PA-C [address] [place] [address] [place] [address] Scheduled Procedures Name Priority Associated Diagnoses Date/Ti me COLONOSCOPY FLEXIBLE PROXIMA L DIAGNOSTIC Recall Special screening for malignant neoplasms, colon Health Maintenance Due Date Last Done Comments Cologuard 2000 Fecal Occult Blood Test 2000 Sigmoidoscopy 2000 Pneumococcal Vaccine: 65+ Years (1 of 1 - PCV) 2020 Adult Wellness Visit 2021 COVID-19 Vaccine ( - season) 2024 11/02/2020, 10/05/2020 Mammogram 09/24/2024 [...] as of this encounter Visit Diagnoses Diagnosis Acute maxillary sinusitis, recurrence not specified- Primary Screening mammogram for breast cancer documented in this encounter Care Teams Solar Sales Estimator Relationship Specialty Start Date End Date Mag Buenrostro DO [address] [place] [address] [place] [address] PCP - General Internal Medicine 03/23/24 documented as of this encounter
--- OUTSIDE RECORDS SUMMARY | 2024-06-04 11:23 | External Medical Summary | Summary of Care ---
Author Name Unknown Organization [facility] Address [address] [place] [address] Phone [phone] Care Team Providers Care Wreath Inspector Name Role Phone Mag Buenrostro DO Primary Care Provider [phone] Reason for Visit * Reason Onset Date Comments Appointment 03/23/2024 Cardiology Encounter Details Date Type Department Care Team (Late st Contact Info) Description 03/23/2024 Telephone Family [address] [address] Mag Buenrostro DO [address] [place] [address] [place] [address] Appointment (Cardiology ) Allergies No known active allergiesdocumented as of [...] encounter Miscellaneous Notes * Telephone Encounter - Dalton Milan OSA - 03/23/2024 11:50 AM EST Patient is scheduled on: NEW CARDIOLOGY at 1:00 PM (30 min)Arrive by 12:45 PM Sunday April 07, 2024 Appointment Provider:Brandon Aceves MD in CARDIOLOGY [facility] * Telephone Encounter - Verna Burnett OSA - 03/23/2024 11:46 AM EST Arabella needs scheduled for Cardiology for: Irregular heart rate [I49.9] 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] Abnormal EKG [R94.31] Scheduling Notes New patient documented in this encounter Plan of Treatment Upcoming Encounters Date Type Department Care Team (Late st Contact Info) Description 04/07/2024 1:00 PM EST Office Visit Cardiology, [facility] [address] [facility] [place] [address] Brandon Aceves MD [address] [place] [address] 09/13/2024 3:00 PM EDT Imaging Radiology[address] [place] [address] 09/30/2024 9:00 AM EDT Imaging Radiology [address] [place] [address] 12/01/2024 10:20 AM EDT Office Visit Dermatology [address] [place] [address] Komal Ellis PA-C [address] [place] [address] [place] [address] Scheduled Procedures Name Priority Associated Diagnoses Date/Ti [...] filedocumented as of this encounter Care Teams Wreath Inspector Relationship Specialty Start Date End Date Mag Buenrostro DO [address] [place] [address] [place] [address] PCP - General Internal Medicine 03/23/24 documented as of this encounter
--- OUTSIDE RECORDS SUMMARY | 2024-06-04 11:23 | External Medical Summary | Summary of Care ---
Author Name Unknown Organization [facility] Address [address] [place] [address] Phone [phone] Care Team Providers Care Filleter Name Role Phone Mag Buenrostro DO Primary Care Provider Encounter Details Date Type Department Care Team (Late st Contact Info) Description 03/31/2024 New Patient Triage (GREEN HOUSE MANAGER USE ONLY) Cardiology, [facility] [address] [place] [address] Danika Hendricks, FLAP MAKER [address] [place] [address] Allergies No known active allergiesdocumented as of this encounter (statuses as of 04/03/2024) Medications Calcium Carb-Cholecalcife rol 600-400 MG-UNIT Oral [...] as of this encounter (statuses as of 04/03/2024) Active Problems Problem Noted Date Diagnosed Date [...] as of this encounter (statuses as of 04/03/2024) Resolved Problems Problem Noted Date Diagnosed Date Resolved Date CKD (chronic kidney disease), stage II 03/08/2021 03/23/2024 Overview (09/06/2021): EGFR 66 ADVANCE DIRECTIVE INFORMATION 07/04/2005 03/08/2024 Overview (07/04/2005): No, Advance Directive brochure given to patient. 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 Mucous polyp of cervix 01/22/200202/20 documented as of this encounter (statuses as of 04/03/2024) Immunizations Name Administration Dates Next Due COVID-19 [...] 18 years and over) Not on file 3 Are you (or your family) silverio eless [...] on file documented as of this encounter Progress Notes * Yamile Reid CRNP - 04/03/2024 6:41 AM EST Does patient need to be seen?: Yes Modality: Office visit Urgency: Within 30 days (routine) Discussed care plan with patient or proxy?: Yes MyG Communicated with patient on Date (mm/dd/yyyy): 03/31/2024 at Time ([facility]): 1106 68 year old female referred by PCP due to abnormal EKG with frequent PVCs (Palpitations, shortness of breath, intermittent chest pains) Currently on Lisinopril and Atorvastatin Recent EKG shows SR with frequent PVCs, T wave invesion in the anterior leads. ? Anteroseptal infarct. Last known ischemic work up was in 2005, negative stress echo. EKG at that time did not demonstratethese changes. Patient currently wearing a ZIO monitor. Placed 03/23/24. Likely will not be resulted by time of visit. Patient will also need further cardiac testing; however, due to close proximity of appt will leave at discretion of exam ing provider Appropriate referral. 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 Communicated with patient on Date (mm/dd/yyyy): 03/31/2024 at Time ([facility]): 11:53 APPOINTMENT INFO: Date/Time Provider Department Status 04/07/24 1:00 PM - 30 min Brandon Aceves MD INFO FROM CARDIAC REFERRAL Referred by Mag Buenrostro DO progress Notes Mag Buenrostro DO (Physician) Internal Medicine Expand All Collapse All Subjective Arabella Castellanos is a 68 year old female. Chief Complaint HPI: Arabella Castellanos presents today for to [...] social history reviewed and updated as needed. Review of Systems Constitutional: Positive for fatigue. [...] All other systems reviewed and are negative. Frequent PVCs - EKG to evaluate PVC burden. Consider BB. - EXTERNAL EKG 8 TO 15 DAYS; Future; Expected date: 03/24/2024 - CARDIOLOGY REFERRAL OP Abnormal EKG - recommend avoiding strenuous activity until evaluated by cardiology. - CARDIOLOGY REFERRAL OP EKG/ECHO/ZIO/CARDIAC TESTING Has Zio ordered. LABS Results for orders placed or performed in visit on 03/23/24 LIPID PANEL WITH DIRECT LDL IF TG IS HIGH Result Value Ref Range Triglycerides 124 <=174 mg/dL Cholesterol 285 (H) <200 mg/dL HDL Cholesterol 61 >49 mg/dL Non-HDL Cholesterol 224 (H) <=159 mg/dL LDL Cholesterol 199 (H) <=129 mg/dL COMPREHENSIVE METABOLIC PANEL Result Value Ref Range BUN 20 6 - 20 mg/dL CREATININE 0.9 0.5 - 1.0 mg/dL EGFR 74 >=60 mL/min SODIUM 140 135 - 146 mmol/L POTASSIUM 4.8 3.5 - 5.1 mmol/L CHLORIDE 103 98 - 107 mmol/L CO2 24 22 - 32 mmol/L ANION GAP 13 7 - 15 mmol/L GLUCOSE 91 70 - 120 mg/dL Albumin 4.8 3.8 - 5.0 g/dL AST 21 10 - 35 U/L Alkaline Phosphatase 72 35 - 130 U/L Bilirubin, Total 0.5 <=1.2 mg/dL CALCIUM 9.7 8.4 - 10.2 mg/dL Protein 7.1 6.0 - 8.3 g/dL ALT 18 10 - 35 U/L TSH WITH FREE T4 IF INDICATED Result Value Ref Range TSH 1.56 0.27 - 4.20 uIU/mL CBC Result Value Ref Range WBC 5.91 4.00 - 10.80 K/uL RBC 4.50 3.85 - 5.15 M/uL HGB 14.0 12.0 - 15.3 g/dL HCT 43.7 36.0 - 45.2 % MCV 97.1 81.5 - 97.5 fL MCH 31.1 27.0 - 34.0 pg MCHC 32.0 32.0 - 36.0 g/dL RDW 11.9 11.5 - 15.5 % PLT 232 140 - 400 K/uL MPV 10.3 6.6 - 11.1 fL nRBCs 0 <=0 /100 WBCs DIFFERENTIAL, AUTOMATED Result Value Ref Range WBC 5.91 4.00 - 10.80 K/uL Neutrophils % 67.2 40.0 - 75.0 % Lymphocytes % 22.2 18.0 - 42.0 % Monocytes % 8.1 1.0 - 11.0 % Eosinophils % 0.7 0.0 - 6.0 % Basophils % 1.5 0.0 - 2.0 % Immature Granulocytes % 0.3 0.0 - 2.0 % Absolute Neutrophils 3.97 1.80 - 7.70 K/uL Absolute Lymphocytes 1.31 1.00 - 4.80 K/ul Absolute Monocytes 0.48 0.00 - 1.10 K/uL Absolute Eosinophils 0.04 0.00 - 0.70 K/uL Absolute Basophils 0.09 0.00 - 0.20 K/uL Absolute Immature Granulocytes 0.02 0.00 - 0.20 K/uL MEDICATIONS Current Outpatient Medications Medication Sig Dispense Refill [...] mouth in the morning. 90 Tablet 3 No current facility-administered medications for this visit. documented in this encounter Plan of Treatment Upcoming Encounters Date Type Department Care Team (Late st Contact Info) Description 04/07/2024 1:00 PM EST Office Visit Cardiology, [facility] [address] [place] [address] Brandon Aceves MD [address] [place] [address] 07/07/2024 1:00 PM EST Office Visit Gynecology/Obstetrics [facility] [address] [place] [address] Evelyn Vega MD [address] [place] [address] 09/13/2024 3:00 PM EDT Imaging Radiology, [address] [place] [address] 09/30/2024 9:00 AM EDT Imaging Radiology [address] [place] [address] 12/01/2024 10:20 AM EDT Office Visit Dermatology [address] [place] [address] Komal Ellis PA-C [address] [place] [address] [place] [address] Scheduled Procedures Name Priority Associated Diagnoses Date/Ti [...] filedocumented as of this encounter Care Teams Filleter Relationship Specialty Start Date End Date Mag Buenrostro DO [address] [place] [address] [place] [address] PCP - General Internal Medicine 03/23/24 documented as of this encounter
--- OUTSIDE RECORDS SUMMARY | 2024-06-04 11:23 | External Medical Summary | Summary of Care ---
Author Name Unknown Organization [facility] Address [address] [place] [address] Phone [phone] Care Team Providers Care Deputy Director Of Public Works Name Role Phone Bindu Buenrostro DO Primary Care Provider [phone] Reason for Referral * Precert (Diagnostic Medical) (Within 10 days (routine)) - Authorized Specialty Diagnoses / Procedures Referred By Contac t Referred To Contact Cardiac Studies Diagnoses Palpitations PVCs (premature ventricular contractions) BISWAS (dyspnea on exertion) Procedures ECHO, STRESS (EXERCISE) W/ PHYSICIAN Brandon Aceves [facility] [address] [facility] [address] Phone: tel: fax: Referral ID Status Reason Start Date Expiration Date V isits Requested Visits Authorized [id number] Authorized Precert 04/21/2024 999 999 Reason for Visit * Reason Comments Consultation F/u EKG per PCP. Hx of PVCs/palpitations. States sometimes feels like heart is "quivering." Episodes of chest tightness with exertion, resolves even with continued activity. Usually active without issues. Wore 2-week Zio and mailed back yesterday. * Evaluate & Treat - Unlimited Visits (Within 3 days (urgent)) - Authorized Specialty Diagnoses / Procedures Referred By Contact Referred To Contact Cardiovascular Medicine / Cardiology Diagnoses Irregular heart rate Frequent PVCs Abnormal EKG Bindu Buenrostro, [address] [place] [address] Phone: tel: fax: Referral ID Status Reason Start Date Expiration Date Visits Requested Visits Authorized [id number] Authorized Specialty Services Required 4 [id number] Encounter Details Date Type Department Care Team (Late st Contact Info) Description 04/07/2024 1:00 PM EST Office Visit Cardiology, [facility] [address] [place] [address] Brandon Aceves MD [address] [place] [address] Palpitations*; PVCs (premature ventricular contractions); BISWAS (dyspnea on exertion) Allergies No known active allergiesdocumented as of this encounter (statuses as of 04/07/2024) Medications Calcium Carb-Cholecalcife rol 600-400 MG-UNIT Oral [...] as of this encounter (statuses as of 04/07/2024) Active Problems Problem Noted Date Diagnosed Date [...] as of this encounter (statuses as of 04/07/2024) Resolved Problems Problem Noted Date Diagnosed Date Resolved Date CKD (chronic kidney disease), stage II 03/08/2021 03/23/2024 Overview (09/06/2021): EGFR 66 ADVANCE DIRECTIVE INFORMATION 07/04/2005 03/08/2024 Overview (07/04/2005): No, Advance Directive brochure given to patient. 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 Mucous polyp of cervix 01/22/200202/20 documented as of this encounter (statuses as of 04/07/2024) Immunizations Name Administration Dates Next Due COVID-19 [...] Sign Reading Time Taken Comments Blood Pressure 164/76 04/07/2024 12:55 PM EST Pulse 68 04/07/2024 12:55 PM EST Temperature - - Respiratory Rate 16 04/07/2024 12:55 PM EST Oxygen Saturation - - Inhaled Oxygen Concentration - - Weight 62.7 kg (138 lb 3.2 oz) 04/07/2024 12:55 PM EST Height - - Body Mass Index 22.31 03/23/2024 8:33 AM EST documented in this encounter Progress Notes * Brandon Aceves MD - 04/07/2024 1:00 PM EST Cardiology Consultation [facility] 04/06/2024 Reason for Consultation: Frequent ventricular ectopy, abnormal EKG Provider Requesting Consultation: PCP: BINDU BUENROSTRO [address] [place] [address] [place] [address] History of Present Illness: Arabella Castellanos is a 68 year old year old female referred with ongoing cardiac concerns 1. Frequent ventricular ectopy 2. Exertional dyspnea 3. Hypertension 4. Abnormal EKG, anteroseptal infarct versus hypertensive change 5. 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 Does exercise through it but still intermittently present. No prior history rheumatic fever scarlet fever heart murmur. No prior history of myocardial infarction angina or congestive heart failure. EKG with frequent ventricular ectopy as well as possible anteroseptal infarct ZIO patch monitor placed but pending Patient denies syncope or near syncope no sustained tachyarrhythmias. Ectopy more common at rest. No fevers chills or unexplained infections. No bleeding issues. Appetite and weight are generally stable Blood pressure labile and intermittently elevated at times of stress A Complete Review of Systems is as stated above or negative. Past Medical History: Patient Active Problem List Diagnosis Primary hypertension Hyperlipidemia with target LDL less than 100 Hx of nonmelanoma skin cancer Lichen sclerosus Osteopenia of necks of both femurs Kidney stone Past Surgical History: Procedure Laterality Date COLONOSCOPY, DIAGNOSTIC (RECTUM) 10/25/2014 normal, repeat 10 yrs/COLONOSCOPY FLEXIBLE PROXIMAL DIAGNOSTIC performed by Vaughn Smith MD at ENDOSCOPY [facility] FRAGMENT KIDNEY STONE BY SHOCK WAVE [...] -2.4, no specific treatment, repeat 2 years Family History: Family History Problem Relation Name Age of Onset Hypertension Mother Heart Disorder Mother has arrhythmia Heart Disorder Father DE at 48 of DE at 58 Heart Disorder Sister arrhythmia Hypertension Sister Cancer Grandmother (Maternal) ovarian ca at 62 Asthma Son Breast Cancer Aunt (Maternal) Cancer Other jaw chewed snuff Social History: Social History Socioeconomic History Marital status: Spouse [...] Stability Do you currently live in a half-way or have no steady place to sleep [...] - for ages0-17 years): Not on file Allergies: Patient has no known allergies. Medications: Current Outpatient Medications Medication Sig Dispense Refill [...] medications for this visit. OBJECTIVE/PHYSICAL EXAMINATION: BP 164/76 (BP Site: Left Arm, BP Position: Sitting, BP Cuff Size: Regular) | Pulse 68 | Resp 16 | Wt 62.7 kg (138 lb 3.2 oz) | LMP 01/02/2002 | BMI 22.31 kg/m | BSA 1.71 m General: Female thin Age-appropriate in no acute distress Head: normocephalic, no masses, lesions, tenderness or abnormalities Eyes: conjunctiva are pink and non-injected, sclera clear Throat: clear Nares: without discharge Neck: supple, no adenopathy, normal jugular venous pulse, no hepatojugular reflux, no carotid bruits Chest: normal shape and normal respiratory effort Lungs: clear to auscultation and percussion Cardiac Exam: - regular rate & rhythm, no murmur, gallop or rub - normal S-1, normal S-2 ectopyaudible Abdomen: abdomen soft, non-tender, no abnormal masses, no hepatosplenomegaly, no abdominal bruit, no femoral bruit Musculoskeletal: no gait disturbance, no joint inflammation, no deforming arthritis Extremities: no edema, no cyanosis, pulses intact 2+/4 Neuro: grossly normal exam Data: EKG March 14, 2024 Sinus rhythm with frequent ventricular ectopy, rate 70 beats per minute Poor R-wave progression V1 through V3 can not exclude anteroseptal infarct Laboratory testing Latest Reference Range & Units 03/23/24 09:50 Triglycerides <=174 mg/dL 124 Cholesterol <200 mg/dL 285 (H) Non-HDL Cholesterol <=159 mg/dL 224 (H) HDL Cholesterol >49 mg/dL 61 LDL Cholesterol <=129 mg/dL 199 (H) SODIUM 135 - 146 mmol/L 140 POTASSIUM 3.5 - 5.1 mmol/L 4.8 CHLORIDE 98 - 107 mmol/L 103 CO2 22 - 32 mmol/L 24 BUN 6 - 20 mg/dL 20 CREATININE 0.5 - 1.0 mg/dL 0.9 EGFR >=60 mL/min 74 ANION GAP 7 - 15 mmol/L 13 GLUCOSE 70 - 120 mg/dL 91 CALCIUM 8.4 - 10.2 mg/dL 9.7 Protein 6.0 - 8.3 g/dL 7.1 TSH 0.27 - 4.20 uIU/mL 1.56 TSH WITH FREE T4 IF INDICATED Rpt CBC Rpt WBC 4.00 - 10.80 K/uL 5.91 RBC 3.85 - 5.15 M/uL 4.50 HGB 12.0 - 15.3 g/dL 14.0 HCT 36.0 - 45.2 % 43.7 MCV 81.5 - 97.5 fL 97.1 MCH 27.0 - 34.0 pg 31.1 MCHC 32.0 - 36.0 g/dL 32.0 RDW 11.5 - 15.5 % 11.9 PLT 140 - 400 K/uL 232 (H): Data is abnormally high Rpt: View report in Results Review for more information IMPRESSION: 68 year old year old female Referred for evaluation of symptoms, chest tightness, palpitations, abnormal EKG. Underlying history of hypertension. No prior history of structural heart disease RECOMMENDATIONS/PLAN: 1. Frequent ventricular ectopy: No overt inciting cause. No anemia, thyroid disorder. Structural heart evaluation ordered with stress echocardiogram. Will trial suppression given elevated blood pressure with metoprolol succinate 12.5 mg daily. Continue current dosing of lisinopril 2. Abnormal EKG echocardiogram as above 3. Hypertension very labile. Continue lisinopril and metoprolol as ordered 4. Marked hyperlipidemia: Agree with statin initiation assessment and plan as above Patient advised to call with any questions or concerns and to report to the ER with any and all emergencies. Disposition: Return after testing Brandon Aceves MD Cardiology, [facility] [address] [place] [address] documented in this encounter Nursing Notes * Erica Guerrero CMA - 04/07/2024 12:56 PM EST Chief Complaint Patient presents with Consultation F/u EKG per PCP. Hx of PVCs/palpitations. States sometimes feels like heart is "quivering." Episodes of chest tightness with exertion, resolves even with continued activity. Usually active without issues. Wore 2-week Zio and mailed back yesterday. Examination Room: 10 Name: Arabella Castellanos Date of : (1955). Reason for Visit: Consult Interim Hospitalization(s): denies Problems/Concerns: see chief complaint Chest Pain/SOB: see chief complaint [facility] Discussed: Not applicable [facility] is a way you can talk to your provider online through e-mail. Would you like to sign up? I can activate it for you? ALREADY ACTIVE Patient was instructed to not get up on the exam table until directed and assisted by their provider; patient is to remain seated in the chair/ wheelchair/ exam table for fall prevention and safety reasons. Patient is aware to have assistance to step down off exam table with personnel. Patient voiced full comprehension of instructions. documented in this encounter Plan of Treatment Upcoming Encounters Date Type Department Care Team (Late st Contact Info) Description 07/07/2024 1:00 PM EST Office Visit Gynecology/Obstetrics [facility] [address] [place] [address] Evelyn Vega MD [address] [place] [address] 09/13/2024 3:00 PM EDT Imaging Radiology, [place] [id number] [facility] [address] 09/30/2024 9:00 AM EDT Imaging Radiology [address] [place] [address] 11/01/2024 8:00 AM EDT Office [facility] [place] [address] Brandon Aceves MD [address] [place] [address] 12/01/2024 10:20 AM EDT Office Visit Dermatology [address] [place] [address] Komal Ellis PA-C [address] [place] [address] [place] [address] Scheduled Orders Name Type Priority Associated Diagnoses Orde r Schedule EKG EKG Routine Palpitations PVCs (premature ventricular contractions) Ordered: 04/07/2024 ECHO, STRESS (EXERCISE) W/ PHYSICIAN Echocardiology Routine Palpitations PVCs (premature ventricular contractions) BISWAS (dyspnea on exertion) Expected: 04/21/2024, Expires: 05/08/2025 Scheduled Procedures Name Priority Associated Diagnoses Date/Ti [...] as of this encounter Visit Diagnoses Diagnosis Palpitations- Primary PVCs (premature ventricular contractions) Other premature beats BISWAS (dyspnea on exertion) Other dyspnea and respiratory abnormality Screening mammogram for breast cancer documented in this encounter Care Teams Deputy Director Of Public Works Relationship Specialty Start Date End Date Bindu Buenrostro DO [address] [place] [address] [place] [id number] PCP - General Internal Medicine 03/23/24 documented as of this encounter
--- OUTSIDE RECORDS SUMMARY | 2024-06-04 11:24 | External Medical Summary ---
Author Name Unknown Address Unknown Organization [id number][place] [facility] [place] [address] [facility] [address] Laboratory Report Ordering Provider Test Date Status KADEN RUANO 03/23/2024 09:50:04 Final Observation Date Value Abnormality Reference (Units ) Status SYNC LEUKOCYTES IN BLOOD BY AUTOMATED COUNT 03/23/2024 09:50:04 5.91 4.00-10.80 (K/uL) Final Segs 03/23/2024 09:50:04 67.2 40.0-75.0 (%) Final Lymphs % 03/23/2024 09:50:04 22.2 18.0-42.0 (%) Final Monos 03/23/2024 09:50:04 8.1 1.0-11.0 (%) Final Eosinophils 03/23/2024 09:50:04 0.7 0.0-6.0 (%) Final Basos 03/23/2024 09:50:04 1.5 0.0-2.0 (%) Final Immature Granulocyte, Percent 03/23/2024 09:50:04 0.3 0.0-2.0 (%) Final Absolute Segs 03/23/2024 09:50:04 3.97 1.80-7.70 (K/uL) Final Lymphs, absolute 03/23/2024 09:50:04 1.31 1.00-4.80 (K/ul) Final Monos, Abs 03/23/2024 09:50:04 0.48 0.00-1.10 (K/uL) Final Eos, Abs 03/23/2024 09:50:04 0.04 0.00-0.70 (K/uL) Final Basos, Abs 03/23/2024 09:50:04 0.09 0.00-0.20 (K/uL) Final Immature Granulocytes, Number 03/23/2024 09:50:04 0.02 0.00-0.20 (K/uL) Final Performing Location [place] [facility] [place] [facility] [address] [facility] [address]
--- OUTSIDE RECORDS SUMMARY | 2024-06-04 11:24 | External Medical Summary ---
Author Name Unknown Address Unknown Organization [id number]:[facility]ORY [facility] [place] - [address] [facility] [place] [address] Laboratory Report Ordering Provider Test Date Status KADEN RUANO 03/23/2024 09:50:04 Final Observation Date Value Abnormality Reference (Units ) Status BUN 03/23/2024 09:50:04 20 6-20 (mg/dL) Final Creatinine 03/23/2024 09:50:04 0.9 0.5-1.0 (mg/dL) Final Glomerular filtration rate/1.73 sq M.predicted [Volume Rate/Area] in Serum, Plasma or Blood by Creatinine-based formula (CKD-EPI) 03/23/2024 09:50:04 74 >=60 (mL/min) Final eGFR is calculated based on the CKD-EPI 2020 equation. Sodium 03/23/2024 09:50:04 140 135-146 (m mol/L) Final Potassium 03/23/2024 09:50:04 4.8 3.5-5.1 (m mol/L) Final Cl 03/23/2024 09:50:04 103 98-107 (mm ol/L) Final CO2 03/23/2024 09:50:04 24 22-32 (mmo l/L) Final Anion gap 03/23/2024 09:50:04 13 7-15 (mmol /L) Final Glucose 03/23/2024 09:50:04 91 70-120 (mg /dL) Final Albumin 03/23/2024 09:50:04 4.8 3.8-5.0 (g /dL) Final AST (Aspartate aminotransferase) 03/23/2024 09:50:04 21 10-35 (U/L) Final Alk Phos 03/23/2024 09:50:04 72 35-130 (U/ L) Final Bilirubin, Total 03/23/2024 09:50:04 0.5 <=1 .2 (mg/dL) Final Calcium 03/23/2024 09:50:04 9.7 8.4-10.2 ( mg/dL) Final Protein 03/23/2024 09:50:04 7.1 6.0-8.3 (g /dL) Final ALT (Alanine aminotransferase) 03/23/2024 09:50:04 18 10-35 (U/L) Final Performing Location [facility] [place] - [facility] [place] [address] [facility] [address]
--- OUTSIDE RECORDS SUMMARY | 2024-06-04 11:24 | External Medical Summary ---
Author Name Unknown Address Unknown Organization [id number]:[facility] [place] [address] [place] [address] Laboratory Report Ordering Provider Test Date Status KADEN RUANO 03/23/2024 09:50:04 Final Observation Date Value Abnormality Reference (Units ) Status TSH 03/23/2024 09:50:04 1.56 0.27-4.20 (uIU/mL) Final Performing Location [facility] [place] - [address] [facility] [address]
--- OUTSIDE RECORDS SUMMARY | 2024-06-04 11:24 | External Medical Summary ---
Author Name Unknown Address Unknown Organization [id number][place] [facility] [place] [facility] [address] [facility] [address] [facility] [address] Laboratory Report Ordering Provider Test Date Status KADEN RUANO 03/23/2024 09:50:04 Final Observation Date Value Abnormality Reference (Units ) Status WBC, Total 03/23/2024 09:50:04 5.91 4.00-10.80 (K/uL) Final RBC 03/23/2024 09:50:04 4.50 3.85-5.15 (M/uL) Final Hemoglobin 03/23/2024 09:50:04 14.0 12.0-15.3 (g/dL) Final HCT 03/23/2024 09:50:04 43.7 36.0-45.2 (%) Final MCV 03/23/2024 09:50:04 97.1 81.5-97.5 (fL) Final MCH 03/23/2024 09:50:04 31.1 27.0-34.0 (pg) Final MCHC 03/23/2024 09:50:04 32.0 32.0-36.0 (g/dL) Final RDW 03/23/2024 09:50:04 11.9 11.5-15.5 (%) Final Platelets 03/23/2024 09:50:04 232 140-400 (K/uL) Final MPV 03/23/2024 09:50:04 10.3 6.6-11.1 (fL) Final Nucleated erythrocytes/100 leukocytes [Ratio] in Blood by Automated count 03/23/2024 09:50:04 0 <=0 (/100 WBCs) Final Performing Location [facility] [facility] [place] [address] [facility] [address]
--- OUTSIDE RECORDS SUMMARY | 2024-06-04 11:24 | External Medical Summary ---
Author Name Unknown Address Unknown Organization [id number]:[facility]ATORY [facility] - [address] [facility] [address] Laboratory Report Ordering Provider Test Date Status KADEN RUANO 03/23/2024 09:50:04 Final Observation Date Value Abnormality Reference (Units ) Status Triglyceride 03/23/2024 09:50:04 124 <=174 ( mg/dL) Final Triglyceride Reference Range s (mg/dL):
<150 Acceptable
150-174 Borderline high
175-499 High
>=500 Very high Cholesterol 03/23/2024 09:50:04 285 Above high normal <200 (mg/dL) Final Total Cholesterol Reference Ranges (mg/dL):
<200 Desirable
200-239 Borderline high
>=240 High HDL 03/23/2024 09:50:04 61 >49 (mg/dL ) Final HDL Cholesterol Reference Ra nges (mg/dL):
>=60 High (Desirable)
<50 Low (Undesirable) For Females
<40 Low (Undesirable) For Males NON-HDL CHOLESTEROL 03/23/2024 09:50:04 224 Above high normal <=159 (mg/dL) Final Non-HDL Cholesterol Referenc e Range (mg/dL):
<100 Target level for high risk ASCVD patient
<130 Optimal for general population
130-159 Near optimal for general population
160-189 Borderline High
190-219 High
>=220 Very High LDL, (calculated) 03/23/2024 09:50:04 199 Above high n ormal <=129 (mg/dL) Final LDL Cholesterol Reference Ra nges (mg/dL):
<70 Target level for high risk ASCVD patient
<100 Optimal for general population
100-129 Near optimal for general population
130-159 Borderline high
160-189 High
>=190 Very high Performing Location LABORATORY [facility] - [address] [facility] [address]
--- OUTSIDE RECORDS SUMMARY | 2024-06-04 11:24 | External Medical Summary | Summary of Care ---
Author Name Unknown Organization [facility] Address [address] [place] [address] Phone [phone] Care Team Providers Care Ornamental Plaster Sticker Name Role Phone Napoleon Cristobal MD Primary Care Provider Reason for Visit * Reason Comments eRx-Medication Refill Encounter Details Date Type Department Care Team (Late st Contact Info) Description 02/09/2024 Refill Family Medicine [address] [phone] Napoleon Cristobal MD [address] [place] [address] Primary hypertension Allergies No known active allergiesdocumented as of this encounter (statuses as of 02/11/2024) Medications Medication Sig Dispensed Refills Start Date End Date Status Calcium Carb-Cholecalcifer ol 600-400 MG-UNIT Oral TabletIndications: 2 pills a day Take by mouth 2 [...] (M) x 1 week. 15 g 1 03/26/2023 Active Lisinopril 10 MG Oral Tablet (Prinivil)Indicati ons:Primary hypertension Take 1 Tablet by mouth in the morning. 90 Tablet 02/11/2024 Active Lisinopril 10 MG Oral Tablet (Prinivil)Indicati ons:Primary hypertension Take 1 Tablet by mouth in the morning. 90 Tablet 3 03/20/2023 4 Discontinued documented as of this encounter (statuses as of 02/11/2024) Active Problems Problem Noted Date Diagnosed Date CKD (chronic kidney disease), stage II Overview: EGFR 66 Hx of nonmelanoma skin cancer 08/07/2020 Overview: basal cell carcinoma (L lateral cheek 08/2020) Primary hypertension 07/28/2014 Overview: lisinopril Hyperlipidemia with target LDL less than 130 Overview: LDL 173 ICD-10 update of inactive term ADVANCE DIRECTIVE INFORMATION 07/04/2005 Overview: No, Advance Directive brochure given to patient. DIFFUS CYSTIC MASTOPATHY 01/22/2002 documented as of this encounter (statuses as of 02/11/2024) Resolved Problems Problem Noted Date Diagnosed Date Resolved Date Other premature beats 10/29/20042014 Mucous polyp of cervix 01/22/200202/20 documented as of this encounter (statuses as of 02/11/2024) Immunizations Name Administration Dates Next Due COVID-19 mRNA, LNP-s, No Pre serve, 2-Dose Series (Moderna) 11/02/2020,10/05/2020 Seasonal Influenza, PF, 6 M & above, [...] money to get more. Never true 03/21/2023 Sex and Gender Information Value Date Recorded Sex Assigned at Female 11/26/2022 9:15 AM EDT Gender Identity Female 11/26/2022 9:15 AM EDT Sexual Orientation Straight 11/26/2022 9: 15 AM EDT Job Start Date Occupation Industry Not on file Not on file Not on file documented as of this encounter Miscellaneous Notes * Telephone Encounter - Bindu Alfonso DO - 02/11/2024 8:29 AM EDTSigned Prescriptions: Disp Refills Lisinopril 10 MG Oral Tablet (Prinivil) 90 Tab*0 Sig: Take 1 Tablet by mouth in the morning. Authorizing Provider: BINDU ALFONSO * Telephone Encounter - Sherice Sylvester [facility] - 02/11/2024 6:15 AM EDT Pending Prescriptions: Disp Refills Lisinopril 10 MG Oral Tablet (Prinivil) 90 Tab*3 Sig: Take 1 Tablet by mouth in the morning. documented in this encounter Plan of Treatment Upcoming Encounters Date Type Department Care Team (Late st Contact Info) Description 03/23/2024 8:50 AM EST Office Visit Family Medicine [address] [place] [phone] [place] [address] 09/30/2024 9:00 AM EDT Imaging Radiology [address] [place] [address] 12/01/2024 10:20 AM EDT Office Visit Dermatology [address] [place] [address] Komal Ellis PA-C [address] [place] [address] [place] [address] Scheduled Procedures Name Priority Associated Diagnoses Date/Ti me COLONOSCOPY FLEXIBLE PROXIMA L DIAGNOSTIC Recall Special screening for malignant neoplasms, colon Health Maintenance Due Date Last Done Comments Cologuard 2000 Fecal Occult Blood Test 2000 Sigmoidoscopy 2000 Pneumococcal Vaccine: 65+ Years (1 of 1 - PCV) 2020 Depression Screening 03/02/2021 03/02/2020 Adult Wellness Visit 2021 COVID-19 Vaccine ( season) 2024 11/02/2020, 10/05/2020 Influenza Vaccine (FLU shot) (#1) 2024 03/20/2023, 03/14/2022, 03/08/2021, Additional history exists GFR 03/20/2024 03/20/2023, 03/05, 03/08/2021, Additional history exists Mammogram 09/24/2024 09/25/2023, 09/03, 09/19/2022, Additional history exists Colonoscopy 10/25/2024 10/25/2014, 10/25/2014 Colorectal Cancer Screening 10/25/2024 Lipid Panel 03/08/2026 03/08/2021, 02/03, 09/06/2014, Additional history exists Albumin/Creatinine Ratio 03/20/2026 023, 03/14/2022, 03/08/2021, Additional history exists DXA Scan 03/13/2028 03/13/2021, 03/13/2021 DTap/Tdap Vaccines (3 - Td or Tdap) 06/01/2030 06/01/2020, 05/24/2010 Pap Smear Discontinued 05/12/2018, 09/03, 09/22/2014, Additional history exists Zoster Vaccines Completed 06/01/2020, 02/03, 08/15/2015 HPV (Gardasil) Vaccine Aged Out No lo [...] cancer documented in this encounter Care Teams Ornamental Plaster Sticker Relationship Specialty Start Date End Date Napoleon Cristobal MD [address] [place] [address] [place] [address] PCP - General 12/18/1995 documented as of this encounter
--- NOTE | 2024-06-04 16:12 | Discharge Summary ---
Date of Service June 04, 2024 Admission HPI Per Admitting Provider 68-year-old female presented for cardiac catheterization due to abnormal exercise stress echo suggesting RCA territory ischemia. Anginal symptoms reproduced on treadmill. Principal Diagnosis Coronary artery disease Discharge Exam Constitutional well nourished; no acute distress ENMT Mallampati Class: III Respiratory normal respiratory effort; no respiratory distress Auscultation: no crackles, no rales, no rhonchi and no wheezes Cardiovascular Rate/Rhythm: regular rate and regular rhythm Heart Sounds: normal S1 and normal S2; no murmur Vessels: radial pulses present (No ecchymosis or hematoma); no JVD and no carotid bruit Extremities: no edema Gastrointestinal (Abdomen) Inspection/Auscultation: abdomen normal to inspection and normal bowel sounds; abdomen not distended Percussion/Palpation: abdomen soft; abdomen nontender, no guarding and abdomen not rigid Neurologic CN's II-XI intact bilaterally and moves all extremities Psychiatric A+Ox3, euthymic affect Discharge Data Allergies Allergy/AdvReac Type Severity Reaction Status Date / Time No Known Allergies Allergy Verified 06/17/02 17:47 Procedures Performed Operation Date: 06/03/24 09:30 Actual Procedures p Cineradiography w/Routine Exam - Mahesh Shelton, p Cath, Left with Cors and Vent - Mahesh Shelton, DO p Drug Eluting Stent SGl Vessel - Efren Fox MD s POBA each ADDTL Vessel - Efren Fox MD Ordered Studies 06/03/24 06:50 CL Cath Imgs for PACS use only Routine Hospital Course (1) Status post insertion of drug-eluting stent into left anterior descending (LAD) artery: (2) S/P right coronary artery (RCA) stent placement: (3) Abnormal stress echocardiogram: (4) Dyslipidemia, goal LDL below 70: Plan Natural history and pathophysiology of coronary artery disease discussed. Recommend continue dual antiplatelet therapy for minimum of 12 months post percutaneous intervention. Post cardiac catheterization activity restrictions listed on discharge summary. Prescription for clopidogrel and sublingual nitroglycerin sent to pharmacy. Borderline hypotension noted this a.m. Lisinopril currently on hold. Cautiously restart lisinopril tomorrow 06/05/2024 and monitor home blood pressure 2-3 days/week. If she notes systolic blood pressure consistently below 110 mmHg, reduce lisinopril to 5 mg daily. All questions answered to patient satisfaction. Cardiology follow-up in 2 to 4 weeks with repeat lipid panel. Consider titration of atorvastatin pending review. Total Time Total Time Spent Total Time Spent (In Minutes): 35 Discharge Plan Discharge Items Patient Disposition: Home - Self-Care Reason For Visit: CAD Discharge Diagnosis: Coronary artery disease status post drug-eluting stent implantation to the right coronary artery and left anterior descending artery. Condition on Discharge: Good Activity: Per Instructions section Non-emergency contact: Cable [employer] Call non-emergency contact if: you have any medication questions, your symptoms worsen, your pain is not controlled and your pain is unusual for you Follow-up/Referrals: PCP,NO [Primary Care Provider] - Diet: Heart Healthy Addtl Attending Provider Instructions: ACTIVITY RECOMMENDATIONS: It is common to feel weak and fatigue for a few days. * Do not drive or operate any motorized equipment for the next three days. * Limit stair usage (2 or 3 trips a day only) for the next three days. * Do not lift anything heavier than 10 pounds for the next three days. * Do not engage in vigorous exercise or any sports for the next five days. * You may shower the day after your procedure, but do not immerse the area for three days. Cleanse the site gently with soap and water. SPECIAL CARE INSTRUCTIONS: * You may replace the pressure dressing or band-aid the morning after the procedure. * After your procedure, it is normal to have a small bruise or small lump at the site. Examine your site daily for any change in the bruise or lump, redness, swelling, drainage or numbness. Notify your doctor if any change. BLEEDING: * If there is a small amount of bleeding at the site, lie down and apply firm pressure with a clean cloth for ten minutes. When the bleeding stops, lie quietly keeping the procedure limb straight for six hours. Notify your doctor as soon as possible. * If the bleeding does not stop after ten minutes or if there is a large amount of bleeding or spurting, call 911 immediately. Continue to lie down and hold firm pressure until help arrives. SKIN IRRITATION: * You may experience some redness and/or swelling in the area where radiation was administered. If any skin irritation occurs, please contact your family physician. FOLLOW UP VISIT: Keep any scheduled doctor appointments. Pending Studies at Discharge: Yes Studies:: Lipid panel (cholesterol blood test) prior to follow-up appointment with cardiology Stand-Alone Forms: My [facility], Smoking Cessation Medications and DC Order Prescriptions: New clopidogrel 75 mg Tablet 75 mg PO QAM Qty: 100 3RF nitroglycerin [Nitrostat] 0.4 mg Tablet, Sublingual 0.4 mg sublingual Q5M PRN (Reason: Chest Pain) Qty: 1 1RF Continued atorvastatin [Lipitor] 40 mg Tablet 40 mg PO QAM clobetasol 0.05 % Cream 1 applic TOPICAL BID aspirin 81 mg Tablet,Delayed Release (Dr/Ec) 81 mg PO DAILY lisinopril 10 mg Tablet 10 mg PO QAM metoprolol succinate [Toprol XL] 25 mg Tablet Extended Release 24 Hr 12.5 mg PO QAM calcium carbonate-vit D3-min 600 mg (1,500 mg)-400 unit Tablet,Chewable 1 tab PO BID Discharge Orders: Discharge Order (Routine); Ordered 06/04/24 Ordered By: Mahesh Shelton Admission Data Admit Date/Time: 06/03/24 12:28 Attending Provider: Mahesh Shelton Admit Provider: Efren Fox Primary Care Provider: PCP,NO Other Interventions: Discharge Summary Assessment (RN) Last Done: 06/04/24 11:50
== END 2024-06-04 12:36 | disposition home or self-care (01) ==
LOC: 2S 08:17 → CC 08:17